=== PATIENT | female | born 1960 | race Hispanic/Latino ===

== ENCOUNTER 2019-02-04 12:42 | Inpatient (IN) | payer OTHER ==
[~2019-02-04] VITALS: Ht 157.5 cm; Wt 82.1 kg
[~2019-02-04 12:42] MED LIST: ADVAIR; DULERA; LISINOPRIL; PRAVASTATIN; SINGULAIR
--- OUTSIDE RECORDS SUMMARY | 2019-02-04 12:46 | XMS REPORT | Summary of Care ---
Author Author [facility] Organization [facility] Address Unknown Phone Unavailable Encounter HQ Milind(JOSE) [id number] Date(s): 04/10/16 - 04/10/16 [facility] [address] [place] [address] [phone] Discharge Disposition: Home or Self Care Attending Physician: Johnathan Newman MD Referring Physician: Johnathan Newman MD Vital Signs Most recent to 1 oldest [Reference Range]: Height 157.48 cm (04/10/16 7:36 AM) Weight 77.273 kg (04/10/16 7:36 AM) Body Mass Index 31.16 m2 (04/10/16 7:36 AM) Problem List Condition Effective Dates Status Health Status Informant Acute Active gastroenteritis(Conf irmed) Acute Resolved pyelonephritis(Confi rmed) Asthma(Confirmed) Resolved Atrial Resolved fibrillation(Confirm ed) H/O type A viral Resolved hepatitis(Confirmed) Hypercholesterolemia Active (Confirmed) Hypertension(Confirm Resolved ed) Allergies, Adverse Reactions, Alerts Substance Reaction Severity Status NKDA Active Medications No data available for this section Results No data available for this section Immunizations Given and Recorded Vaccine Date Status Refusal Reason influenza virus vaccine, inactivated 03/15/16 Given influenza virus vaccine, inactivated 08/08/08 Given pneumococcal 23-valent vaccine 04/19/07 Given Procedures Procedure Date Related Diagnosis Body Site Appendectomy Arthroscopy of knee1 Cardiac catheterization CTR - Carpal tunnel release2 Epidural anesthesia3 Partial hysterectomy Tonsillectomy 1left 2bilateral [id number] Social History Social History Type Response Alcohol Never Smoking Status Never smoker; Exposure to Tobacco Smoke None; Cigarette Smoking Last 365 Days No; Reg Smoking Cessation Counseling No Assessment and Plan No data available for this section
--- OUTSIDE RECORDS SUMMARY | 2019-02-04 12:46 | XMS REPORT | Summary of Care ---
Author Author [facility] Organization [facility] Address Unknown Phone Unavailable Encounter HQ Domi_marni(FIN) [id number] Date(s): 03/30/16 - 03/30/16 [facility] [address] [place] [address]- Discharge Disposition: Home or Self Care Attending Physician: Karthik Bird MD Referring Physician: Karthik Bird MD Vital Signs No data available for this section Problem List Condition Effective Dates Status Health [...] Epidural anesthesia3 Partial hysterectomy Tonsillectomy 1left 2bilateral [id number] Social History Social History Type Response Alcohol Never Smoking Status Never smoker; Exposure to Tobacco Smoke None; Cigarette Smoking Last 365 Days No; Reg Smoking Cessation Counseling No Assessment and Plan No data available for this section
--- OUTSIDE RECORDS SUMMARY | 2019-02-04 12:46 | XMS REPORT | Summary of Care ---
Author Author [facility] Address Unknown Phone Unavailable Encounter HQ Domi_marni(FIN) [id number] Date(s): 06/09/15 - 07/08/15 [facility] Discharge Disposition: Home Attending Physician: Randall Sanderson MD Vital Signs No data available for this section Problem List Condition Effective Dates Status Health Status Informant Acute Active gastroenteritis(Conf irmed) Acute Resolved pyelonephritis(Confi rmed) Asthma(Confirmed) Resolved Atrial Resolved fibrillation(Confirm ed) Hypercholesterolemia Active (Confirmed) Hypertension(Confirm Resolved ed) Allergies, Adverse Reactions, Alerts Substance Reaction Severity Status NKDA Active Medications No data available for this section Results No data available for this section Immunizations Vaccine Date Refusal Reason influenza virus vaccine, inactivated 08/08/08 pneumococcal 23-valent vaccine 04/19/07 Procedures Procedure Date Related Diagnosis Body Site Appendectomy Arthroscopy of knee1 Cardiac catheterization CTR - Carpal tunnel release2 Epidural anesthesia3 Partial hysterectomy Tonsillectomy 1left 2bilateral [id number] Social History Social History Type Response Alcohol Never Smoking Status Never smoker; Exposure to Tobacco Smoke None; Cigarette Smoking Last 365 Days No; Reg Smoking Cessation Counseling No Assessment and Plan No data available for this section
--- OUTSIDE RECORDS SUMMARY | 2019-02-04 12:46 | XMS REPORT | Summary of Care ---
Author Author [facility] Address Unknown Phone Unavailable Encounter HQ Domi_marni(FIN) [id number] Date(s): 07/13/15 - 08/11/15 [facility] Discharge Disposition: Home Attending Physician: Randall Sanderson [...] Epidural anesthesia3 Partial hysterectomy Tonsillectomy 1left 2bilateral [id number] Social History Social History Type Response Alcohol Never Smoking Status Never smoker; Exposure to Tobacco Smoke None; Cigarette Smoking Last 365 Days No; Reg Smoking Cessation Counseling No Assessment and Plan No data available for this section
--- OUTSIDE RECORDS SUMMARY | 2019-02-04 12:46 | XMS REPORT | Summary of Care ---
Author Author [facility] Organization [facility] Address Unknown Phone Unavailable Encounter ASHLI Vaz(JOSE) [id number] Date(s): 04/04/16 - 04/04/16 [facility] [address] [facility] [address], [address] Discharge Disposition: Home or Self Care Attending Physician: Johnathan Newman MD Referring Physician: Johnathan Newman MD Vital Signs Most recent to 1 oldest [Reference Range]: Height 157.48 cm (04/04/16 9:08 AM) Temperature Oral 97.1 DegF [96.4-99.1 DegF] (04/04/16 9:08 AM) Blood Pressure 165/81 mmHg [90-140/60-90 mmHg] *HI* (04/04/16 9:08 AM) Respiratory Rate 20 BRMIN [14-20 BRMIN] (04/04/16 9:08 AM) Peripheral Pulse 83 bpm Rate [60-100 bpm] (04/04/16 9:08 AM) Weight 79.205 kg (04/04/16 9:08 AM) Body Mass Index 31.94 m2 (04/04/16 9:08 AM) Problem List Condition Effective Dates Status Health Status Informant Acute Active gastroenteritis(Conf irmed) Acute Resolved pyelonephritis(Confi rmed) Asthma(Confirmed) Resolved Atrial Resolved fibrillation(Confirm ed) H/O type A viral Resolved hepatitis(Confirmed) Hypercholesterolemia Active (Confirmed) Hypertension(Confirm Resolved ed) Allergies, Adverse Reactions, Alerts Substance Reaction Severity Status NKDA Active Medications atorvastatin 10 mg oral tablet 10 mg=1 tab, PO, Bedtime, # 90 tab, 0 Refill(s) Start Date: 04/04/16 Status: Ordered losartan 25 mg oral tablet 25 mg=1 tab, PO, Daily, # 30 tab, 0 Refill(s) Start Date: 04/04/16 Status: Ordered spironolactone 50 mg oral tablet 50 mg=1 tab, PO, Daily, # 60 tab, 0 Refill(s) Start Date: 04/04/16 Stop Date: 05/04/16 Status: Ordered Results No data available for this section Immunizations Given and Recorded Vaccine Date Status Refusal Reason influenza virus vaccine, inactivated 03/15/16 Given influenza virus vaccine, inactivated 08/08/08 Given pneumococcal 23-valent vaccine 04/19/07 Given Procedures Procedure Date Related Diagnosis Body Site Appendectomy Arthroscopy of knee1 Cardiac catheterization CTR - Carpal tunnel release2 Epidural anesthesia3 Partial hysterectomy Tonsillectomy 1left 2bilateral [id number] Social History Social History Type Response Alcohol Never Smoking Status Never smoker; Exposure to Tobacco Smoke None; Cigarette Smoking Last 365 Days No; Reg Smoking Cessation Counseling No Assessment and Plan No data available for this section
--- OUTSIDE RECORDS SUMMARY | 2019-02-04 12:46 | XMS REPORT | Summary of Care ---
Author Author [facility] Organization [facility] Address Unknown Phone Unavailable Encounter HQ Domi_marni(FIN) [id number] Date(s): 05/24/16 - 05/25/16 [facility] [address], [address] [place] [address]- Vital Signs No data available for this section Problem List Condition Effective Dates Status Health Status Informant Acute Active gastroenteritis(Conf irmed) Acute Resolved pyelonephritis(Confi rmed) Asthma(Confirmed) Resolved Atrial Resolved fibrillation(Confirm ed) H/O type A viral Resolved hepatitis(Confirmed) Hypercholesterolemia Active (Confirmed) Hypertension(Confirm Resolved ed) Allergies, Adverse Reactions, Alerts Substance Reaction Severity Status NKDA Active Medications hydrochlorothiazide 12.5 mg oral capsule 12.5 mg=1 cap, PO, Daily, # 30 cap, 3 Refill(s), Pharmacy: [phone] Start Date: 05/24/16 Status: Ordered Results No data available for this section Immunizations Given and Recorded Vaccine Date Status Refusal Reason influenza virus vaccine, inactivated 03/15/16 Given influenza virus vaccine, inactivated 08/08/08 Given pneumococcal 23-valent vaccine 04/19/07 Given Procedures Procedure Date Related Diagnosis Body Site Appendectomy Arthroscopy of knee1 Cardiac catheterization CTR - Carpal tunnel release2 Epidural anesthesia3 Partial hysterectomy Tonsillectomy 1left 2bilateral [id number] Social History Social History Type Response Alcohol Never Smoking Status Never smoker; Exposure to Tobacco Smoke None; Cigarette Smoking Last 365 Days No; Reg Smoking Cessation Counseling No Assessment and Plan No data available for this section
--- OUTSIDE RECORDS SUMMARY | 2019-02-04 12:46 | XMS REPORT | Summary of Care ---
Author Author [facility] Organization [facility] Address Unknown Phone Unavailable Encounter ASHLI Vaz(JOSE) [id number] Date(s): 03/19/15 - 03/19/15 [facility] [address] [place] [address]- Discharge Disposition: Home Attending Physician: Randall Sanderson MD Referring Physician: Randall Sanderson MD Vital Signs 1 2 3 Most recent to oldest [Reference Range]: 157.48 cm (03/16/15 9:32 AM) Height 1 2 3 Most recent to oldest [Reference Range]: 97.8 DegF (03/16/15 9:47 AM) Temperature Oral [96.4-99.1 DegF] 1 2 3 Most recent to oldest [Reference Range]: 146/63 mmHg *HI* (03/19/15 7:30 PM) 148/66 mmHg *HI* (03/19/15 7:15 PM) 140/73 mmHg (03/19/15 7:00 PM) Blood Pressure [90-140/60-90 mmHg] 1 2 3 Most recent to oldest [Reference Range]: 15 BRMIN (03/19/15 7:00 PM) 15 BRMIN (03/19/15 6:45 PM) 14 BRMIN (03/19/15 6:30 PM) Respiratory Rate [14-20 BRMIN] 1 2 3 Most recent to oldest [Reference Range]: 74 bpm (03/16/15 9:47 AM) Peripheral Pulse Rate [60-100 bpm] 1 2 3 Most recent to oldest [Reference Range]: 82.727 kg (03/16/15 9:32 AM) Weight 1 2 3 Most recent to oldest [Reference Range]: 33.36 m2 (03/16/15 9:32 AM) Body Mass Index Problem List Condition Effective Dates Status Health Status Informant Acute Active gastroenteritis(Conf irmed) Acute Resolved pyelonephritis(Confi rmed) Asthma(Confirmed) Resolved Atrial Resolved fibrillation(Confirm ed) Hypercholesterolemia Active (Confirmed) Hypertension(Confirm Resolved ed) Allergies, Adverse Reactions, Alerts Substance Reaction Severity Status NKDA Active Medications acetaminophen 1,000 mg, Route: IVPB, Drug form: INJ, ONCE, Dosing Weight 82.727, kg, PRN Pain Score 1-3, Start date: 03/19/15 17:35:00, Duration: 1 doses or times, Stop date: Limited # of times Start Date: 03/19/15 Stop Date: 03/19/15 Status: Discontinued Advair Diskus 250 mcg-50 mcg inhalation powder 1 puff, INHALATION, BID, # 1 ea, 3 Refill(s) Start Date: 03/16/15 Stop Date: 04/15/15 Status: Ordered Ancef 2 gm, Route: IVPB, ONCE, Dosing Weight 82.727, kg, Start date: 03/19/15 16:46:00 , Duration: 1 doses or times, Stop date: 03/19/15 16:46:00, Surgical Prophylaxis Only; For patients < 120 kg Special Instructions: Surgical Prophylaxis Only; For patients < 120 kg Start Date: 03/19/15 Stop Date: 03/19/15 Status: Completed aspirin 81 mg tablet, enteric coated 81 mg=1 tab, PO, Daily, *LAST DOSE 03/14/15*, # 90 tab, 3 Refill(s) Special Instructions: *LAST DOSE 03/14/15* Start Date: 03/16/15 Status: Ordered Dulera 100 mcg-5 mcg/inh inhalation aerosol 2 puff, INHALER, BID, # 1 ea, 3 Refill(s) Start Date: 03/16/15 Status: Ordered fentaNYL 50 microgram, Route: IVP, Q5Min, Dosing Weight 82.727, kg, PRN Pain Score 7-10, Start date: 03/19/15 17:35:00, Duration: 2 doses or times, Stop date: Limited # of times Start Date: 03/19/15 Stop Date: 03/19/15 Status: Discontinued flumazenil 0.2 mg, Route: IVP, PRN, Dosing Weight 82.727, kg, PRN Benzodiazepine Reversal, Initial dose, Start date: 03/19/15 17:35:00, Duration: 30 day, Stop date: 16:34:00 Start Date: 03/19/15 Stop Date: 03/19/15 Status: Discontinued hydrochlorothiazide-triamterene 25 mg-37.5 mg oral capsule 1 cap, PO, Daily, # 30 cap, 0 Refill(s) Start Date: 03/16/15 Status: Ordered hydromorphone 0.5 mg, Route: IVP, Q5Min, Dosing Weight 82.727, kg, PRN Pain Score 7-10, Start date: 03/19/15 17:35:00, Duration: 4 doses or times, Stop date: Limited # of jermaine es Start Date: 03/19/15 Stop Date: 03/19/15 Status: Discontinued Lactated Ringers Injection IV 1000 mL 1,000 mL, Rate: 25 ml/hr, Infuse over: 40 hr, Route: IV, Dosing Weight 82.727 kg , Total Volume: 1,000, Start date: 03/19/15 14:02:00, Duration: 30 day, Stop jolene e: 04/18/15 14:01:00 Start Date: 03/19/15 Stop Date: 03/19/15 Status: Discontinued lisinopril 10 mg oral tablet 10 mg=1 tab, PO, Daily, # 30 tab, 0 Refill(s) Start Date: 03/16/15 Status: Ordered meperidine 12.5 mg, Route: IVP, Q30Min, Dosing Weight 82.727, kg, PRN Other -See Comment, F or shivering, Start date: 03/19/15 17:35:00, Duration: 2 doses or times, Stop da te: Limited # of times Start Date: 03/19/15 Stop Date: 03/19/15 Status: Discontinued naloxone 0.04 mg, Route: IVP, Q2MIN, Dosing Weight 82.727, kg, PRN Narcotic Reversal, Sta rt date: 03/19/15 17:35:00, Duration: 8 doses or times, Stop date: Limited # of times Start Date: 03/19/15 Stop Date: 03/19/15 Status: Discontinued ondansetron 4 mg, Route: IVP, ONCE, Dosing Weight 82.727, kg, PRN Nausea & Vomiting, Start date: 03/19/15 17:35:00 Start Date: 03/19/15 Stop Date: 03/19/15 Status: Discontinued oxyCODONE 5 mg, Route: PO, Drug form: TAB, Q4H, Dosing Weight 82.727, kg, PRN Pain Score 4 -6, Start date: 03/19/15 17:35:00, Duration: 30 day, Stop date: 04/18/15 17:34:0 0 Start Date: 03/19/15 Stop Date: 03/19/15 Status: Discontinued Singulair 10 mg oral tablet 10 mg=1 tab, PO, Bedtime, # 30 tab, 0 Refill(s) Start Date: 03/16/15 Status: Ordered Symbicort 160/4.5 inhalation aerosol with adapter 2 puff, INHALER, BID, # 1 ea, 3 Refill(s) Start Date: 03/16/15 Status: Ordered Results ELECTROLYTES Most recent to 1 oldest [Reference Range]: Sodium Lvl [135-145 139 mEq/L mEq/L] (03/16/15 10:12 AM) Potassium Lvl 4.2 mEq/L [3.5-5.1 mEq/L] (03/16/15 10:12 AM) Chloride Lvl [95-109 105 mEq/L mEq/L] (03/16/15 10:12 AM) CO2 [24-32 mEq/L] 27 mEq/L (03/16/15 10:12 AM) CHEM PANEL Most recent to 1 oldest [Reference Range]: Creatinine Lvl 0.7 mg/dL [0.5-1.4 mg/dL] (03/16/15 10:12 AM) eGFR 97 mL/min/1.73m2 1 *NA* (03/16/15 10:12 AM) BUN [7-22 mg/dL] 13 mg/dL (03/16/15 10:12 AM) Glucose Lvl [70-99 103 mg/dL mg/dL] *HI* (03/16/15 10:12 AM) Total Protein 7.9 g/dL [6.4-8.4 g/dL] (03/16/15 10:12 AM) Albumin Lvl [3.5-5.0 4.0 g/dL g/dL] (03/16/15 10:12 AM) Globulin [2.0-4.0 3.9 g/dL g/dL] (03/16/15 10:12 AM) A/G Ratio [0.7-1.6] 1.0 (03/16/15 10:12 AM) Calcium Lvl 8.9 mg/dL [8.5-10.5 mg/dL] (03/16/15 10:12 AM) ALT [0-65 unit/L] 34 unit/L (03/16/15 10:12 AM) AST [0-37 unit/L] 15 unit/L (03/16/15 10:12 AM) Alk Phos [39-136 124 unit/L unit/L] (03/16/15 10:12 AM) Bili Total [0.2-1.3 0.4 mg/dL mg/dL] (03/16/15 10:12 AM) Bili Direct [0.0-0.3 0.1 mg/dL mg/dL] (03/16/15 10:12 AM) Bili Indirect 0.3 mg/dL [0.0-1.0 mg/dL] (03/16/15 10:12 AM) 1Result Comment: The eGFR is calculated using the CKD-EPI formula. In most young, healthy individuals the eGFR will be >90 mL/min/1.73m2. The eGFR declines with age. An eGFR of 60-89 may be normal in some populations, particularly the elderly, for whom the CKD-EPI formula has not been extensively validated. Use of the eGFR is not recommended in the following populations: Individuals with unstable creatinine concentrations, including patients and those with serious co-morbid conditions. Patients with extremes in muscle mass or diet. The data above are obtained from the National Kidney Disease Education Program ( NKDEP) which additionally recommends that when the eGFR is used in patients with extremes of body mass index for purposes of drug dosing, the eGFR should be mul tiplied by the estimated BMI. HEMATOLOGY Most recent to 1 oldest [Reference Range]: WBC [3.7-10.4 K/CMM] 6.3 K/CMM (03/16/15 10:12 AM) Platelet [133-450 198 K/CMM K/CMM] (03/16/15 10:12 AM) PT [12.0-14.7 12.5 seconds seconds] (03/16/15 10:12 AM) INR [0.85-1.17] 0.90 (03/16/15 10:12 AM) PTT [22.9-35.8 31.5 seconds seconds] (03/16/15 10:12 AM) Immunizations Vaccine Date Refusal Reason influenza virus vaccine, inactivated 08/08/08 pneumococcal 23-valent vaccine 04/19/07 Procedures Procedure Date Related Diagnosis Body Site Appendectomy Arthroscopy of knee1 Cardiac catheterization CTR - Carpal tunnel release2 Epidural anesthesia3 Partial hysterectomy Tonsillectomy 1left 2bilateral [id number] Social History Social History Type Response Alcohol Never Smoking Status Never smoker; Exposure to Tobacco Smoke None; Cigarette Smoking Last 365 Days No; Reg Smoking Cessation Counseling No Assessment and Plan No data available for this section
--- OUTSIDE RECORDS SUMMARY | 2019-02-04 12:46 | XMS REPORT | Summary of Care ---
Author Author [facility] Address Unknown Phone Unavailable Encounter HQ Domi_marni(FIN) [id number] Date(s): 03/30/15 - 04/28/15 [facility] Discharge Disposition: Home Attending Physician: Randall [...] Epidural anesthesia3 Partial hysterectomy Tonsillectomy 1left 2bilateral [id number] Social History Social History Type Response Alcohol Never Smoking Status Never smoker; Exposure to Tobacco Smoke None; Cigarette Smoking Last 365 Days No; Reg Smoking Cessation Counseling No Assessment and Plan No data available for this section
--- OUTSIDE RECORDS SUMMARY | 2019-02-04 12:46 | XMS REPORT | Continuity of Care Document ---
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 Phone [employer] Unavailable Unavailable Problems Problem Status Onset Date Classification Date Reported Comments Source FOLLOW UP Active 01/15/2019 [facility] Chest pain, unspecified 11/16/2018 11/18/2018 [facility] CHEST PAIN Active 11/16/2018 [facility] 3 MONTH FOLLOW UP Active 11/02/2016 [facility] 3 MONTH F/U Active 08/02/2016 [facility] F/U Active 07/14/2016 [facility] 2 WEEK F/U Active 04/05/2016 [facility] DX:[id number] AND COLLAPSE Active 03/27/2016 [facility] HTN/ ARRYTHMIA Active 03/21/2016 [facility] JAW TIGHTNESS, WEAKNESS Active 03/14/2016 [facility] STROKE LIKE SX Active 03/14/2016 [facility] UNK Active 03/05/2015 [facility] [id number] Active 03/05/2015 [facility] Acute gastroenteritis (disorder) Active Problem 01/29/2019 [facility] Acute pyelonephritis (disorder) Resolved Problem 01/29/2019 [facility] Asthma (disorder) Resolved Problem 01/29/2019 [facility] Atrial fibrillation (disorder) Resolved Problem 01/29/2019 [facility] History of hepatitis A (situation) Resolved Problem 01/29/2019 [facility] Hypercholesterolemia (disorder) Active Problem 01/29/2019 [facility], [facility] Hypertensive disorder, systemic arterial (disorder) Resolved Problem 01/29/2019 [facility], [facility] RT KNEE SX 03/19/15 Active [facility] RT KNEE Active [facility] PAIN Active [facility] SHOULDER Active [facility] Medications Medication Details Route Status Patient Instructions Ordering Provider Order Date Source atorvastatin 40 mg oral tablet 40 mg=1 tab, PO, Bedtime, # 30 tab, 11 Refill(s), Pharmacy: [id number] Active 01/28/2019 [facility] metoprolol 50 mg oral tablet, extended release 50 mg=1 tab, PO, Daily, take one tab daily, in combination with 25 mg tab for total dose 75 mg daily., # 30 tab, 11 Refill(s), Pharmacy: [facility] Active 01/28/2019 [facility] metoprolol 25 mg oral tablet, extended release 25 mg=1 tab, PO, Daily, Take 1 tab daily in combination with 50 mg tab for total dose of 75 mg daily., # 30 tab, 11 Refill(s), Pharmacy: [facility] Active 01/28/2019 [facility] losartan 50 mg oral tablet 50 mg=1 tab, PO, Daily, # 30 tab, 11 Refill(s), Pharmacy: [facility] Active 11/19/2018 [facility] Hydrochlorothiazide 25 MG / Spironolactone 25 MG Oral Tablet [Aldactazide] 1 tab, PO, Daily, # 30 tab, 11 Refill(s), Pharmacy: [facility] Active 11/19/2018 [facility] Aspirin 81 MG Enteric Coated Tablet 81 mg=1 tab, PO, Daily, # 30 tab, 11 Refill(s), Pharmacy: [facility] Active 11/19/2018 [facility] atorvastatin 20 MG Oral Tablet [Lipitor] 20 mg=1 tab, PO, Daily, # 30 tab, 11 Refill(s), Pharmacy: [facility] Active 11/19/2018 [facility] metoprolol 50 mg oral tablet, extended release 50 mg=1 tab, PO, Daily, # 30 tab, 11 Refill(s), Pharmacy: [facility] Active 11/19/2018 [facility] Hydrochlorothiazide 25 MG / Spironolactone 25 MG Oral Tablet [Aldactazide] 1 tab, PO, Daily, # 30 tab, 6 Refill(s), Pharmacy: [facility] Active 10/07/2018 [facility] atorvastatin 20 mg oral tablet 20 mg=1 tab, PO, Daily, # 30 tab, 6 Refill(s), Pharmacy: [facility] Active 11/26/2017 [facility] metoprolol 50 mg oral tablet, extended release 50 mg=1 tab, PO, Daily, # 30 tab, 6 Refill(s), Pharmacy: [facility] Active 11/26/2017 [facility] Hydrochlorothiazide 25 MG / Spironolactone 25 MG Oral Tablet [Aldactazide] 1 tab, PO, Daily, # 30 tab, 6 Refill(s), Pharmacy: [facility] Active 11/26/2017 [facility] losartan 50 mg oral tablet 50 mg=1 tab, PO, Daily, # 30 tab, 6 Refill(s), Pharmacy: [facility] Active 11/26/2017 [facility] Hydrochlorothiazide 25 MG / Spironolactone 25 MG Oral Tablet [Aldactazide] 1 tab, PO, Daily, # 30 tab, 6 Refill(s), Pharmacy: [facility] Active 06/12/2017 [facility] Hydrochlorothiazide 25 MG / Spironolactone 25 MG Oral Tablet [Aldactazide] 1 tab, PO, Daily, # 30 tab, 6 Refill(s), Pharmacy: [facility] Active 03/31/2017 [facility] metoprolol 50 mg oral tablet, extended release 50 mg=1 tab, PO, Daily, # 30 tab, 6 Refill(s), Pharmacy: [facility] Active 03/31/2017 [facility] losartan 50 mg oral tablet 50 mg=1 tab, PO, Daily, # 30 tab, 6 Refill(s), Pharmacy: [facility] Active 03/31/2017 [facility] atorvastatin 20 mg oral tablet 20 mg=1 tab, PO, Daily, # 30 tab, 6 Refill(s), Pharmacy: [facility] Active 03/31/2017 [facility] aspirin 81 mg tablet, enteric coated 81 mg=1 tab, PO, Daily, *LAST DOSE 03/14/15*, # 120 tab, 5 Refill(s), Pharmacy: [facility] Active 03/31/2017 [facility] metoprolol 50 mg oral tablet, extended release 50 mg=1 tab, PO, Daily, X 30 day, # 30 tab, 2 Refill(s), Pharmacy: [facility] No Longer Active 12/04/2016 [facility] metoprolol 25 mg oral tablet, extended release 25 mg=1 tab, PO, BID, # 60 tab, 5 Refill(s), Pharmacy: [facility] Active 11/24/2016 [facility] spironolactone 50 mg oral tablet 50 mg=1 tab, PO, Daily, # 30 tab, 5 Refill(s), Pharmacy: [facility] Active 08/01/2016 [facility] metoprolol 25 mg oral tablet, extended release See Instructions, 1 tab in the morning and two tabs in the evening., # 90 tab, 5 Refill(s), Pharmacy: [facility] Active 08/01/2016 [facility] losartan 50 mg oral tablet 50 mg=1 tab, PO, Daily, # 30 tab, 5 Refill(s), Pharmacy: [facility] Active 08/01/2016 [facility] Hydrochlorothiazide 12.5 MG Oral Capsule 12.5 mg=1 cap, PO, Daily, # 30 tab, 5 Refill(s), Pharmacy: [facility] Active 08/01/2016 [facility] atorvastatin 20 mg oral tablet 20 mg=1 tab, PO, Daily, # 30 tab, 5 Refill(s), Pharmacy: [facility] Active 08/01/2016 [facility] aspirin 81 mg tablet, enteric coated 81 mg=1 tab, PO, Daily, *LAST DOSE 03/14/15*, # 30 tab, 5 Refill(s), Pharmacy: [facility] Active 08/01/2016 [facility] Hydrochlorothiazide 12.5 MG Oral Capsule 12.5 mg=1 cap, PO, Daily, # 30 cap, 3 Refill(s), Pharmacy: [facility] Active 05/25/2016 [facility] atorvastatin 10 mg oral tablet 10 mg=1 tab, PO, Bedtime, # 90 tab, 0 Refill(s) Active 04/04/2016 [facility] losartan 25 mg oral tablet 25 mg=1 tab, PO, Daily, # 30 tab, 0 Refill(s) Active 04/04/2016 [facility] spironolactone 50 mg oral tablet 50 mg=1 tab, PO, Daily, # 60 tab, 0 Refill(s) Active 04/04/2016 [facility] atorvastatin 40 mg, 1 tab, Route: PO, Drug form: TAB, Bedtime, Dosing Weight 76.818, kg, Start date: 03/15/16 21:00:00 CDT, Duration: 30 day, Stop date: 04/13/16 21:00:00 CDTNotes: (Same as: Lipitor) Inactive 03/16/2016 [facility] Singulair 10 mg, 1 tab, Route: PO, Drug form: TAB, Bedtime, Dosing Weight 76.818, kg, Start date: 03/15/16 21:00:00 CDT, Duration: 30 day, Stop date: 04/13/16 21:00:00 CDTNotes: (Same as:Singulair) Inactive 03/16/2016 [facility] Ondansetron 4 MG Disintegrating Tablet [Zofran] 4 mg, PO, Q8H, PRN Nausea, X 5 day, # 15 tab, 0 Refill(s) Active 03/15/2016 [facility] rizatriptan 5 MG Oral Tablet [Maxalt] 5 mg, PO, Daily, PRN migraine/headache, # 9 tab, 0 Refill(s) Active 03/15/2016 [facility] Zofran ODT 4 mg, 1 tab, Route: PO, Drug form: TABDIS, Q8H, Dosing Weight 78.892, kg, PRN Nausea, Start date: 03/15/16 13:51:00 CDT, Duration: 30 day, Stop date: 04/14/16 13:50:00 CDTNotes: (Same as: [place] ODT) Inactive 03/15/2016 [facility] influenza virus vaccine, inactivated 0.5 mL, Route: IM, Drug Form: SUSP, Daily, Start date: 03/15/16 9:00:00 CDT, Duration: 1 doses or times, Stop date: 03/15/16 9:00:00 CDTNotes: (Same as: Fluzone Quadrivalent, Fluarix Quadrivalent) For 3 years of age and older (0.5 mL IM) Shake well before use Inactive 03/15/2016 [facility] Lisinopril 10 mg, 1 tab, Route: PO, Drug form: TAB, Daily, Dosing Weight 76.818, kg, Start date: 03/15/16 9:00:00 CDT, Duration: 30 day, Stop date: 04/13/16 9:00:00 CDTNotes: (Same as: Prinivil, Zestril) Inactive 03/15/2016 [facility] Hydrochlorothiazide 25 MG / Triamterene 37.5 MG Oral Capsule 1 tab, Route: PO, Drug Form: TAB, Dosing Weight 76.818, kg, Daily, Start date: 03/15/16 9:00:00 CDT, Duration: 30 day, Stop date: 04/13/16 9:00:00 CDTNotes: (triamterene-hydrochlorothiazide 37.5-25 mg TAB) (Same As: Maxzide-25) Inactive 03/15/2016 [facility] Dulera 100 mcg-5 mcg/inh inhalation aerosol 2 puff, Route: INHALER, Drug Form: AERO, Dosing Weight 76.818, kg, BID, Start date: 03/15/16 9:00:00 CDT, Duration: 30 day, Stop date: 04/13/16 17:00:00 CDT Inactive 03/15/2016 [facility] Advair Diskus 250 mcg-50 mcg inhalation powder 1 puff, Route: INHALATION, Drug Form: AERO, Dosing Weight 76.818, kg, BID, Start date: 03/15/16 9:00:00 CDT, Duration: 30 day, Stop date: 04/13/16 17:00:00 CDT Inactive 03/15/2016 [facility] Symbicort 160/4.5 inhalation aerosol with adapter 2 puff, Route: INHALER, Drug Form: AERO/A, Dosing Weight 76.818, kg, BID, Start date: 03/15/16 9:00:00 CDT, Duration: 30 day, Stop date: 04/13/16 17:00:00 CDT Inactive 03/15/2016 [facility] pneumococcal capsular polysaccharide type 1 vaccine / pneumococcal capsular polysaccharide type 10A vaccine / pneumococcal capsular polysaccharide type 11A vaccine / pneumococcal capsular polysaccharide type 12F vaccine / pneumococcal capsular polysacchar 0.5 mL, Route: IM, Daily, Start date: 03/15/16 9:00:00 CDT, Duration: 1 doses or times, Stop date: 03/15/16 9:00:00 CDT No Longer Active 03/15/2016 [facility] Aspirin 81 MG Enteric Coated Tablet 81 mg, 1 tab, Route: PO, Drug form: ECTAB, Daily, Dosing Weight 76.818, kg, Start date: 03/15/16 6:00:00 CDT, Duration: 30 day, Stop date: 04/13/16 9:00:00 CDTNotes: Do not crush or chew. (Same As: Ecotrin) Inactive 03/15/2016 [facility] Maxalt 5 mg, 0.5 tab, Route: PO, Drug form: TAB, ONCE, Dosing Weight 76.818, kg, PRN Headache 7-10, Start date: 03/14/16 23:57:00 CDTNotes: Same as Maxalt Non Formulary item No Longer Active 03/15/2016 [facility] Maxalt 5 mg, PO, Daily, PRN migraine/headache, 0 Refill(s) No Longer Active 03/15/2016 [facility] zolmitriptan 5 MG Oral Tablet [Zomig] 5 mg=1 tab, PO, Daily, PRN Headache/Migraine, # 10 tab, 0 Refill(s) Active 03/15/2016 [facility] Tylenol 650 mg, 20.3 mL, Route: PO, Drug form: LIQ, Q4H, Dosing Weight 76.818, kg, PRN Pain Score 1-3, Start date: 03/14/16 21:06:00 CDT, Duration: 30 day, Stop date: 04/13/16 21:05:00 CDTNotes: Max acetaminoph ep=4322sr/day (4 gm/day). (Same as: Tylenol) No Longer Active 03/15/2016 [facility] Zofran 4 mg, 2 mL, Route: IV, Drug form: INJ, Q6H, Dosing Weight 76.818, kg, PRN as needed for nausea/vomiting, Priority: NOW, Start date: 03/14/16 18:33:00 CDT, Duration: 30 day, Stop date: 04/13/16 18:32:00 CDTNotes: (Same as: Zofran) MEDICATION WASTE Product Size: 4 mg Product Wasted: ___ mg No Longer Active 03/14/2016 [facility] Sodium Chloride 0.154 MEQ/ML Injectable Solution 1,000 mL, Infuse Over: 1 hr, Route: IV, ONCE, Priority: STAT, Dosing Weight 76.818 kg, Start date: 03/14/16 10:56:00 CDT, Duration: 1 doses or times, Stop date: 03/14/16 10:56:00 CDT Inactive 03/14/2016 [facility] Saline Flush 0.9% 10 mL, Route: IVP, Drug Form: INJ, Dosing Weight 76.818, kg, PRN, PRN Line Flush, Start date: 03/14/16 10:56:00 CDT, Duration: 30 day, Stop date: 04/13/16 10:55:00 CDTNotes: (Same as: BD Posiflush) Inactive 03/14/2016 [facility] Ondansetron 4 mg, Route: IVP, ONCE, Dosing Weight 82.727, kg, PRN Nausea & Vomiting, Start date: 03/19/15 17:35:00 Inactive 03/19/2015 [facility] Meperidine 12.5 mg, Route: IVP, Q30Min, Dosing Weight 82.727, kg, PRN Other -See Comment, For shivering, Start date: 03/19/15 17:35:00, Duration: 2 doses or times, Stop date: Limited # of times Inactive 03/19/2015 [facility] Flumazenil 0.2 mg, Route: IVP, PRN, Dosing Weight 82.727, kg, PRN Benzodiazepine Reversal, Initial dose, Start date: 03/19/15 17:35:00, Duration: 30 day, Stop date: 04/18/15 16:34:00 Inactive 03/19/2015 [facility] Naloxone 0.04 mg, Route: IVP, Q2MIN, Dosing Weight 82.727, kg, PRN Narcotic Reversal, Start date: 03/19/15 17:35:00, Duration: 8 doses or times, Stop date: Limited # of times Inactive 03/19/2015 [facility] Fentanyl 50 microgram, Route: IVP, Q5Min, Dosing Weight 82.727, kg, PRN Pain Score 7-10, Start date: 03/19/15 17:35:00, Duration: 2 doses or times, Stop date: Limited # of times Inactive 03/19/2015 [facility] Hydromorphone 0.5 mg, Route: IVP, Q5Min, Dosing Weight 82.727, kg, PRN Pain Score 7-10, Start date: 03/19/15 17:35:00, Duration: 4 doses or times, Stop date: Limited # of times Inactive 03/19/2015 [facility] Acetaminophen 1,000 mg, Route: IVPB, Drug form: INJ, ONCE, Dosing Weight 82.727, kg, PRN Pain Score 1-3, Start date: 03/19/15 17:35:00, Duration: 1 doses or times, Stop date: Limited # of times Inactive 03/19/2015 [facility] Oxycodone 5 mg, Route: PO, Drug form: TAB, Q4H, Dosing Weight 82.727, kg, PRN Pain Score 4-6, Start date: 03/19/15 17:35:00, Duration: 30 day, Stop date: 04/18/15 17:34:00 Inactive 03/19/2015 [facility] Ancef 2 gm, Route: IVPB, ONCE, Dosing Weight 82.727, kg, Start date: 03/19/15 16:46:00, Duration: 1 doses or times, Stop date: 03/19/15 16:46:00, Surgical Prophylaxis Only; For patients Special Instructions: Surgical Prophylaxis Only; For patients Inactive 03/19/2015 [facility] Calcium Chloride 0.0014 MEQ/ML / Potassium Chloride 0.004 MEQ/ML / Sodium Chloride 0.103 MEQ/ML / Sodium Lactate 0.028 MEQ/ML Injectable Solution 1,000 mL, Rate: 25 ml/hr, Infuse over: 40 hr, Route: IV, Dosing Weight 82.727 kg, Total Volume: 1,000, Start date: 03/19/15 14:02:00, Duration: 30 day, Stop date: 04/18/15 14:01:00 Inactive 03/19/2015 [facility] montelukast 10 MG Oral Tablet [Singulair] 10 mg=1 tab, PO, Bedtime, # 30 tab, 0 Refill(s) Active 03/16/2015 [facility] Advair Diskus 250 mcg-50 mcg inhalation powder 1 puff, INHALATION, BID, # 1 ea, 3 Refill(s) Active 03/16/2015 [facility] Aspirin 81 MG Enteric Coated Tablet 81 mg=1 tab, PO, Daily, *LAST DOSE 03/14/15*, # 90 tab, 3 Refill(s)Special Instructions: *LAST DOSE 03/14/15* Active 03/16/2015 [facility] 120 ACTUAT formoterol fumarate 0.005 MG/ACTUAT / mometasone furoate 0.1 MG/ACTUAT Metered Dose Inhaler [Dulera 100/5] 2 puff, INHALER, BID, # 1 ea, 3 Refill(s) Active 03/16/2015 [facility] Symbicort 160/4.5 inhalation aerosol with adapter 2 puff, INHALER, BID, # 1 ea, 3 Refill(s) Active 03/16/2015 [facility] lisinopril 10 mg oral tablet 10 mg=1 tab, PO, Daily, # 30 tab, 0 Refill(s) Active 03/16/2015 [facility] Hydrochlorothiazide 25 MG / Triamterene 37.5 MG Oral Capsule 1 cap, PO, Daily, # 30 cap, 0 Refill(s) Active 03/16/2015 [facility] Allergies, Adverse Reactions, Alerts Substance Category Reaction Severity Reaction type Status Date Reported Comments Source codeine<sup>1</sup> Assertion Moderate Drug allergy Active [facility]ching [facility] Latex<sup>2</sup> Assertion Moderate Drug allergy Active itching [facility] traMADol<sup>3</sup> Assertion Moderate Drug allergy Active Hives , Itching [facility] Latex<sup>1</sup> Assertion Moderate Drug allergy Active itching [facility] Immunizations Immunization Date Given Site Status Last Updated Comments Source influenza virus vaccine, inactivated 03/15/2016 Left deltoid completed [place] [facility], [facility] influenza virus vaccine, inactivated 08/08/2008 Left upper arm completed [place] [facility], [facility] pneumococcal 23-valent vaccine 04/19/2007 Right deltoid completed [place] [facility], [facility] Results Order Name Results Value Reference Range Date Interpretation Comments Source CHEM PANEL A/G Ratio 1.0 0.7 - 1.6 11/19/2018 [facility] CHEM PANEL eGFR 93 11/19/2018 Result Comment: The eGFR is calculated using the [...] from the National Kidney Disease Education Program (NKDEP) which additionally recommends that when the eGFR is used in patients with extremes of body mass index for purposes of drug dosing, the eGFR should be multiplied by the estimated BMI. [facility] CHEM PANEL Total Protein 7.9 6.4 - 8.4 11/19/2018 [facility] CHEM PANEL CO2 28 24 - 32 11/19/2018 [facility] CHEM PANEL Potassium Lvl 3.9 3.5 - 5.1 11/19/2018 [facility] CHEM PANEL Sodium Lvl 140 135 - 145 11/19/2018 [facility] CHEM PANEL Alk Phos 115 39 - 136 11/19/2018 [facility] CHEM PANEL ALT 32 0 - 65 11/19/2018 [facility] CHEM PANEL Chloride Lvl 105 95 - 109 11/19/2018 [facility] CHEM PANEL Albumin Lvl 4.0 3.5 - 5.0 11/19/2018 [facility] CHEM PANEL Calcium Lvl 8.9 8.5 - 10.5 11/19/2018 [facility] CHEM PANEL B/C Ratio 14 6 - 25 11/19/2018 [facility] CHEM PANEL Globulin 3.9 2.7 - 4.2 11/19/2018 [facility] CHEM PANEL AGAP 10.9 10.0 - 20.0 11/19/2018 [facility] CHEM PANEL Bili Total 0.6 0.2 - 1.3 11/19/2018 [facility] CHEM PANEL AST 14 0 - 37 11/19/2018 [facility] CHEM PANEL Glucose Lvl 89 70 - 99 11/19/2018 [facility] CHEM PANEL BUN 10 7 - 22 11/19/2018 [facility] CHEM PANEL Creatinine Lvl 0.71 0.50 - 1.40 11/19/2018 [facility] HEMATOLOGY MPV 9.9 7.4 - 10.4 11/19/2018 [facility] HEMATOLOGY Platelet 212 133 - 450 11/19/2018 [facility] HEMATOLOGY MCV 83.1 80.0 - 98.0 11/19/2018 [facility] HEMATOLOGY Hct 39.5 36.0 - 48.0 11/19/2018 [facility] HEMATOLOGY RDW 14.3 11.5 - 14.5 11/19/2018 [facility] HEMATOLOGY MCHC 32.7 32.0 - 36.0 11/19/2018 [facility] HEMATOLOGY MCH 27.1 27.0 - 31.0 11/19/2018 [facility] HEMATOLOGY Hgb 12.9 12.0 - 16.0 11/19/2018 [facility] HEMATOLOGY RBC 4.75 4.20 - 5.40 11/19/2018 [facility] HEMATOLOGY WBC 9.1 3.7 - 10.4 11/19/2018 [facility] HEMATOLOGY Segs 50.8 45.0 - 75.0 11/19/2018 [facility] HEMATOLOGY Lymphocytes 39.5 20.0 - 40.0 11/19/2018 [facility] HEMATOLOGY Monocytes 6.9 2.0 - 12.0 11/19/2018 [facility] HEMATOLOGY Lymphocytes # 3.6 1.0 - 5.5 11/19/2018 [facility] HEMATOLOGY Monocytes # 0.6 0.0 - 0.8 11/19/2018 [facility] HEMATOLOGY Basophils 0.6 0.0 - 1.0 11/19/2018 [facility] HEMATOLOGY Neutrophils # 4.6 1.5 - 8.1 11/19/2018 [facility] HEMATOLOGY Eosinophils 2.2 0.0 - 4.0 11/19/2018 [facility] HEMATOLOGY Basophils # 0.1 0.0 - 0.2 11/19/2018 [facility] HEMATOLOGY Eosinophils # 0.2 0.0 - 0.5 11/19/2018 [facility] LIPIDS VLDL 19 11/19/2018 [facility] LIPIDS LDL (Calculated) 124 <=99 mg/dL 11/19/2018 [facility] LIPIDS CHD Risk 4.33 3.90 - 5.80 11/19/2018 [facility] LIPIDS HDL 43 >=61 mg/dL 11/19/2018 [facility] LIPIDS Trig 96 <=149 mg/dL 11/19/2018 [facility] LIPIDS Chol 186 <=199 mg/dL 11/19/2018 [facility] SPECIAL CHEMISTRY Hgb A1C 5.8 <=5.6 % 11/19/2018 [facility] IMMUNOLOGY CDC HIV 4th GEN Negative *NA* (11/16/18 2:22 PM) Negative 11/16/2018 [facility] CARDIAC ENZYMES Troponin-I <0.02 0.00 - 0.40 11/16/2018 [facility] CARDIAC ENZYMES Troponin-I <0.02 0.00 - 0.40 11/16/2018 [facility] CHEM PANEL eGFR 97 11/16/2018 Result Comment: The eGFR is calculated using the [...] from the National Kidney Disease Education Program (NKDEP) which additionally recommends that when the eGFR is used in patients with extremes of body mass index for purposes of drug dosing, the eGFR should be multiplied by the estimated BMI. [facility] CHEM PANEL Glucose Lvl 108 70 - 99 11/16/2018 [facility] CHEM PANEL Sodium Lvl 139 135 - 145 11/16/2018 [facility] CHEM PANEL BUN 16 7 - 22 11/16/2018 [facility] CHEM PANEL Potassium Lvl 3.5 3.5 - 5.1 11/16/2018 [facility] CHEM PANEL Creatinine Lvl 0.65 0.50 - 1.40 11/16/2018 [facility] CHEM PANEL Calcium Lvl 9.1 8.5 - 10.5 11/16/2018 [facility] CHEM PANEL CO2 24 24 - 32 11/16/2018 [facility] CHEM PANEL Chloride Lvl 104 95 - 109 11/16/2018 [facility] CHEM PANEL AGAP 14.5 10.0 - 20.0 11/16/2018 [facility] HEMATOLOGY MPV 9.7 7.4 - 10.4 11/16/2018 [facility] HEMATOLOGY RDW 14.2 11.5 - 14.5 11/16/2018 [facility] HEMATOLOGY MCH 27.9 27.0 - 31.0 11/16/2018 [facility] HEMATOLOGY MCV 80.9 80.0 - 98.0 11/16/2018 [facility] HEMATOLOGY MCHC 34.4 32.0 - 36.0 11/16/2018 [facility] HEMATOLOGY WBC 6.9 3.7 - 10.4 11/16/2018 [facility] HEMATOLOGY RBC 5.07 4.20 - 5.40 11/16/2018 [facility] HEMATOLOGY Hgb 14.1 12.0 - 16.0 11/16/2018 [facility] HEMATOLOGY Hct 41.0 36.0 - 48.0 11/16/2018 [facility] HEMATOLOGY Platelet 187 133 - 450 11/16/2018 [facility] HEMATOLOGY RBC Morph Normal (11/16/18 12:06 PM) Normal 11/16/2018 [facility] HEMATOLOGY Plt Morph Normal (11/16/18 12:06 PM) Normal 11/16/2018 [facility] HEMATOLOGY Basophils # 0.1 0.0 - 0.2 11/16/2018 [facility] HEMATOLOGY Eosinophils # 0.1 0.0 - 0.5 11/16/2018 [facility] HEMATOLOGY Monocytes # 0.5 0.0 - 0.8 11/16/2018 [facility] HEMATOLOGY Lymphocytes # 2.5 1.0 - 5.5 11/16/2018 [facility] HEMATOLOGY Eosinophils 1.5 0.0 - 4.0 11/16/2018 [facility] HEMATOLOGY Monocytes 7.2 2.0 - 12.0 11/16/2018 [facility] HEMATOLOGY Lymphocytes 36.3 20.0 - 40.0 11/16/2018 [facility] HEMATOLOGY Segs 54.2 45.0 - 75.0 11/16/2018 [facility] HEMATOLOGY Neutrophils # 3.7 1.5 - 8.1 11/16/2018 [facility] HEMATOLOGY Basophils 0.8 0.0 - 1.0 11/16/2018 [facility] LIPIDS LDL (Calculated) 113 <=99 mg/dL 03/15/2016 [facility] LIPIDS VLDL 22 03/15/2016 [facility] LIPIDS CHD Risk 4.38 3.90 - 5.80 03/15/2016 [facility] LIPIDS Chol 175 <=199 mg/dL 03/15/2016 [facility] LIPIDS HDL 40 >=61 mg/dL 03/15/2016 [facility] LIPIDS Trig 110 <=149 mg/dL 03/15/2016 [facility] HEMATOLOGY D-Dimer 0.22 03/14/2016 [facility] CARDIAC ENZYMES CK MB Index 1.6 0.0 - 2.5 03/14/2016 [facility] CARDIAC ENZYMES Total CK 81 12 - 191 03/14/2016 [facility] CARDIAC ENZYMES Troponin-I <0.02 0.00 - 0.40 03/14/2016 [facility] CARDIAC ENZYMES CK MB 1.3 0.5 - 3.6 03/14/2016 [facility] CHEM PANEL eGFR 99 03/14/2016 Result Comment: The eGFR is calculated using the [...] from the National Kidney Disease Education Program (NKDEP) which additionally recommends that when the eGFR is used in patients with extremes of body mass index for purposes of drug dosing, the eGFR should be multiplied by the estimated BMI. [facility] CHEM PANEL AGAP 7.8 10.0 - 20.0 03/14/2016 [facility] CHEM PANEL Chloride Lvl 109 95 - 109 03/14/2016 [facility] CHEM PANEL CO2 28 24 - 32 03/14/2016 [facility] CHEM PANEL Calcium Lvl 8.6 8.5 - 10.5 03/14/2016 [facility] CHEM PANEL BUN 13 7 - 22 03/14/2016 [facility] CHEM PANEL Sodium Lvl 141 135 - 145 03/14/2016 [facility] CHEM PANEL Creatinine Lvl 0.64 0.50 - 1.40 03/14/2016 [facility] CHEM PANEL Potassium Lvl 3.8 3.5 - 5.1 03/14/2016 [facility] CHEM PANEL Glucose Lvl 108 70 - 99 03/14/2016 [facility] HEMATOLOGY Segs 56.1 45.0 - 75.0 03/14/2016 [facility] HEMATOLOGY Lymphocytes # 2.0 1.0 - 5.5 03/14/2016 [facility] HEMATOLOGY Eosinophils 1.6 0.0 - 4.0 03/14/2016 [facility] HEMATOLOGY Segs-Bands # 3.2 1.5 - 8.1 03/14/2016 [facility] HEMATOLOGY Basophils 1.0 0.0 - 1.0 03/14/2016 [facility] HEMATOLOGY Monocytes 7.1 2.0 - 12.0 03/14/2016 [facility] HEMATOLOGY Lymphocytes 34.2 20.0 - 40.0 03/14/2016 [facility] HEMATOLOGY Eosinophils # 0.1 0.0 - 0.5 03/14/2016 [facility] HEMATOLOGY Monocytes # 0.4 0.0 - 0.8 03/14/2016 [facility] HEMATOLOGY Basophils # 0.1 0.0 - 0.2 03/14/2016 [facility] HEMATOLOGY PT 12.5 12.0 - 14.7 03/14/2016 [facility] HEMATOLOGY INR 0.91 0.85 - 1.17 03/14/2016 [facility] HEMATOLOGY WBC 5.7 3.7 - 10.4 03/14/2016 [facility] HEMATOLOGY RBC 4.79 4.20 - 5.40 03/14/2016 [facility] HEMATOLOGY Hgb 12.9 12.0 - 16.0 03/14/2016 [facility] HEMATOLOGY Hct 38.5 36.0 - 48.0 03/14/2016 [facility] HEMATOLOGY MCV 80.3 80.0 - 98.0 03/14/2016 [facility] HEMATOLOGY MCH 26.9 27.0 - 31.0 03/14/2016 [facility] HEMATOLOGY MPV 10.4 7.4 - 10.4 03/14/2016 [facility] HEMATOLOGY RDW 14.0 11.5 - 14.5 03/14/2016 [facility] MCHC 33.5 32.0 - 36.0 03/14/2016 [facility] HEMATOLOGY Platelet 189 133 - 450 03/14/2016 [facility] HEMATOLOGY PTT 30.4 22.9 - 35.8 03/14/2016 [facility] IMMUNOLOGY CDC HIV 4th GEN Negative (03/14/16 11:34 AM) Negative 03/14/2016 [facility] IMMUNOLOGY [place]-Hep C Ab Negative *NA* (03/14/16 11:34 AM) Negative 03/14/2016 [facility] URINE AND STOOL UA Urobilinogen <=1.0 mg/dL 0.1 - 1.0 03/14/2016 [facility] URINE AND STOOL UA Color Ltyellow 03/14/2016 [facility] URINE AND STOOL UA Sq Epi Few /LPF Few /LPF 03/14/2016 [facility] URINE AND STOOL UA WBC 3 0 - 5 03/14/2016 [facility] URINE AND STOOL UA RBC 1 0 - 2 03/14/2016 [facility] URINE AND STOOL UA Bili Negative *NA* (03/14/16 11:34 AM) Negative 03/14/2016 [facility] URINE AND STOOL UA Blood Negative (03/14/16 11:34 AM) Negative 03/14/2016 [facility] URINE AND STOOL UA Ketones Negative mg/dL Negative mg/dL 03/14/2016 [facility] URINE AND STOOL UA Glucose Negative mg/dL Negative mg/dL 03/14/2016 [facility] URINE AND STOOL UA Turbidity Clear (03/14/16 11:34 AM) Clear 03/14/2016 [facility] URINE AND STOOL UA Nitrite Negative (03/14/16 11:34 AM) Negative 03/14/2016 [facility] URINE AND STOOL UA Leuk Est Small *ABN* (03/14/16 11:34 AM) Negative 03/14/2016 [facility] URINE AND STOOL UA pH 7.0 5.0 - 8.0 03/14/2016 [facility] URINE AND STOOL UA Spec Grav 1.013 <=1.030 03/14/2016 [facility] URINE AND STOOL UA Protein Negative mg/dL Negative mg/dL 03/14/2016 [facility] CHEM PANEL Bili Indirect 0.3 0.0 - 1.0 03/16/2015 [facility] CHEM PANEL Bili Total 0.4 0.2 - 1.3 03/16/2015 [facility] CHEM PANEL Bili Direct 0.1 0.0 - 0.3 03/16/2015 [facility] CHEM PANEL Albumin Lvl 4.0 3.5 - 5.0 03/16/2015 [facility] CHEM PANEL Alk Phos 124 39 - 136 03/16/2015 [facility] CHEM PANEL Total Protein 7.9 6.4 - 8.4 03/16/2015 [facility] CHEM PANEL Globulin 3.9 2.0 - 4.0 03/16/2015 [facility] CHEM PANEL A/G Ratio 1.0 0.7 - 1.6 03/16/2015 [facility] CHEM PANEL ALT 34 0 - 65 03/16/2015 [facility] CHEM PANEL AST 15 0 - 37 03/16/2015 [facility] CHEM PANEL eGFR 97 03/16/2015 Result Comment: The eGFR is calculated using the [...] from the National Kidney Disease Education Program (NKDEP) which additionally recommends that when the eGFR is used in patients with extremes of body mass index for purposes of drug dosing, the eGFR should be multiplied by the estimated BMI. [facility] CHEM PANEL Creatinine Lvl 0.7 0.5 - 1.4 03/16/2015 [facility] CHEM PANEL Potassium Lvl 4.2 3.5 - 5.1 03/16/2015 [facility] CHEM PANEL Sodium Lvl 139 135 - 145 03/16/2015 [facility] CHEM PANEL Calcium Lvl 8.9 8.5 - 10.5 03/16/2015 [facility] CHEM PANEL Chloride Lvl 105 95 - 109 03/16/2015 [facility] CHEM PANEL BUN 13 7 - 22 03/16/2015 [facility] CHEM PANEL Glucose Lvl 103 70 - 99 03/16/2015 [facility] CHEM PANEL CO2 27 24 - 32 03/16/2015 [facility] HEMATOLOGY WBC 6.3 3.7 - 10.4 03/16/2015 [facility] HEMATOLOGY PT 12.5 12.0 - 14.7 03/16/2015 [facility] HEMATOLOGY PTT 31.5 22.9 - 35.8 03/16/2015 [facility] HEMATOLOGY INR 0.90 0.85 - 1.17 03/16/2015 [facility] HEMATOLOGY Platelet 198 133 - 450 03/16/2015 [facility] Pathology Reports No Data Provided for This Section Diagnostic Reports Report Value Date Source Carotid artery Doppler bilat US EXAM: US EXTRACRANIAL ARTERIAL DOPPLER DATE: 12/09/2018 2:05 PM CDT INDICATION: I10 Essential (primary) hypertension - I10 Essential (primary) hypertension COMPARISON: 03/30/2016 TECHNIQUE: Multiplanar grayscale, color Doppler and spectral Doppler ultrasound images of the carotid and vertebral arteries. DISCUSSION: Right Carotid System: Right Common Carotid Artery (RCCA): / 77 cm/s Right Internal Carotid Artery (CHRISTIAN): / 80 cm/s Right External Carotid Artery (RECA): 77 cm/s Right Vertebral Artery (RVA): 50 cm/s. Antegrade flow with normal waveform. Left Carotid System: Left Common Carotid Artery (LCCA): /86 cm/s Left Internal Carotid Artery (LICA): / 84 cm/s Left External Carotid Artery (LECA): 78 cm/s Left Vertebral Artery (LVA): 36 cm/s. Antegrade flow with normal waveform. The ICA/CCA ratio on the right is 1.01 and on the left is 0.97. IMPRESSION: 1. Right internal carotid artery: Normal (no stenosis). 2. Left internal carotid artery: Normal (no stenosis). 3. Vertebral arteries: Antegrade flow with normal waveforms bilaterally. According to the 2003 Consensus criteria: <50% stenosis: PSV <125 cm/sec, EDV <40cm/sec, ICA:CCA ratio <2 50-69% stenosis: PSV 125-230cm/sec, EDV 40-100cm/sec, ICA:CCA ratio 2-4 >70% stenosis: PSV >230cm/sec, EDV >100cm/sec, ICA:CCA ratio >4 Reference: Radiology. 2003 [id number]. Carotid Artery Stenosis: Wisdom-scale and Doppler US diagnosis- Society of Radiologists in Ultrasound Consensus Conference. Donny EG, Sulaiman CB, Marta GL, et. al. 12/09/2018 [facility] [place] Chest 2 views DX EXAM: XR CHEST 2 VIEWS DATE: 11/16/2018 12:11 CDT INDICATION: - chest pain COMPARISON: 03/14/2016 TECHNIQUE: PA and lateral chest radiographs FINDINGS: No pulmonary or pleural-based abnormality is identified. The heart size is normal. No acute bony abnormality is identified. IMPRESSION: No acute cardiopulmonary abnormality. 11/16/2018 [facility] Carotid artery Doppler bilat US Patient Name: ANIL BARRON : 1960; Age: 55 years y/o Female MR: [id number] Study: Carotid artery Doppler bilat US 03/30/2016 8:57 AM CDT Ordering Physician: Karthik Bird MD Clinical Indication: SYNCOPE AND COLLAPSE; Comparison: None TECHNIQUE: Wisdom-scale, color Doppler and spectral Doppler of the carotid arteries was performed. Any reported ICA stenoses indirectly reference the distal internal carotid diameter as the denominator for the stenosis measurement, utilizing consensus panel criteria. FINDINGS: RIGHT: No significant plaque ICA PSV 97 cm/sec CCA PSV 81 cm/sec ICA/CCA ratio 1.2 Vertebral flow is antegrade. External carotid artery is patent. LEFT: No significant plaque ICA PSV 109 cm/sec CCA PSV 126 cm/sec ICA/CCA ratio 0.9 Vertebral flow is antegrade. External carotid artery is patent. IMPRESSION: 1. RIGHT: ICA stenosis <50 % by velocity criteria. 1. LEFT: ICA stenosis <50 % by velocity criteria. Consensus panel Doppler US criteria for diagnosis of ICA stenosis: Stenosis (%) ICA PSV (cm/sec) ICA/CCA ratio <50 <125 <2.0 50-69 125-230 2.0-4.0 >70 but less than >230 >4.0 near occlusion Near occlusion High, low, or Variable undetectable SL: [id number] 03/30/2016 [facility] Brain wo contrast MRI Patient Name: ANIL BARRON : 1960; Age: 55 years y/o Female MR: [id number] Study: Brain wo contrast MRI 03/14/2016 2:43 PM CDT Ordering Physician: Karyn Garcia MD Clinical Indication: Left-sided weakness; dizziness Comparison: CT head dated 03/14/2016 TECHNIQUE: Multiplanar MRI of the brain is performed on a 1.5 Kaela magnet. Contrast: None. FINDINGS: BRAIN PARENCHYMA: No abnormal signal identified on diffusion-weighted imaging to suggest an acute infarction. No abnormal areas of signal intensity identified about the brain. No extra-axial fluid collection, mass effect or shift. CEREBELLOPONTINE REGIONS AND SKULL BASE: The craniocervical junction, skull base and pituitary gland are unremarkable. Cerebellar pontine angles unremarkable bilaterally. VENTRICLES: The ventricles and sulci are within normal limits for the patient's age. VESSELS: Normal flow voids identified in the major vessels at the base of the brain. ORBITS, VISUALIZED PARANASAL SINUSES AND MASTOIDS: Small amount of posterior left ethmoid sinus disease. IMPRESSION: 1. Small amount of posterior left ethmoid sinus disease. 2. Otherwise unremarkable brain MRI without contrast. SL: [id number] 03/14/2016 [facility] Chest 1view DX Patient Name: ANIL BARRON : 1960; Age: 55 years y/o Female MR: [id number] Study: Chest 1view DX 03/14/2016 10:56 AM CDT Ordering Physician: Clinical Indication: Shortness of Breath; Comparison: 02/08/2013 1 view chest Lungs are clear. Cardiomediastinal silhouette normal. No pleural effusion or pneumothorax. No osseous abnormality. IMPRESSION: Negative. SL: [id number] 03/14/2016 [facility] Brain wo contrast CT Patient Name: ANIL BARRON : 1960; Age: 55 years Female MR: [id number] Study: Brain wo contrast CT 03/14/2016 10:56 AM CDT Clinical Indication: Confusion. pt states she took her blood pressure AND IT WAS HIGH LEFT ARM NUMBNESS AND DIZZINESS COMPARISON: None TECHNIQUE: CT images were obtained from the foramen magnum to the vertex without the use of intravenous contrast on a multidetector CT. Coronal and sagittal reconstructions were obtained. FINDINGS: BRAIN PARENCHYMA: There are normal wisdom-white interfaces, sulci and gyri. There is no mass effect or midline shift. There is no extra-axial fluid collection, intraventricular or intraparenchymal hemorrhage. The sella and pineal regions are normal. The skull base, cerebellum and brainstem are normal. VENTRICLES: The ventricles are normal in size and configuration. The basilar cisterns are normal. ORBITS, MASTOIDS AND PARANASAL SINUSES: The visualized orbits are normal. Mild left ethmoid sinus mucosal thickening. The mastoid air cells are clear. SKULL: There are no osseous abnormalities. If there is further concern for intracranial pathology or acute stroke, MRI of the brain may be performed for complete assessment. IMPRESSION: Normal noncontrast head CT. No mass, hemorrhage or subacute stroke. SL: [id number] 03/14/2016 [facility] Consultation Notes No Data Provided for This Section Discharge Summaries No Data Provided for This Section History and Physicals No Data Provided for This Section Vital Signs Vital Sign Value Date Comments Source Systolic (mm Hg) 139 01/27/2019 [facility] Diastolic (mm Hg) 88 01/27/2019 [facility] Heart Rate 104 01/27/2019 [facility] Respitory Rate 18 01/27/2019 [facility] Temperature Oral (F) 99.1 F 01/27/2019 [facility] Height 154.94 cm 01/27/2019 [facility] Weight 83.807 01/27/2019 [facility] BMI Calculated 34.91 01/27/2019 [facility] BMI Calculated 35.25 11/19/2018 [facility] Weight 84.631 11/19/2018 [facility] Height 154.94 cm 11/19/2018 [facility] Temperature Oral (F) 98.4 F 11/19/2018 [facility] Respitory Rate 18 11/19/2018 [facility] Heart Rate 75 11/19/2018 [facility] Systolic (mm Hg) 127 11/19/2018 [facility] Diastolic (mm Hg) 77 11/19/2018 [facility] Systolic (mm Hg) 128 11/16/2018 [facility] Diastolic (mm Hg) 69 11/16/2018 [facility] Temperature Oral (F) 97.5 F 11/16/2018 [facility] Respitory Rate 18 11/16/2018 [facility] Respitory Rate 16 11/16/2018 [facility] Systolic (mm Hg) 138 11/16/2018 [facility] Diastolic (mm Hg) 74 11/16/2018 [facility] Heart Rate 77 11/16/2018 [facility] Systolic (mm Hg) 138 11/16/2018 [facility] Diastolic (mm Hg) 75 11/16/2018 [facility] Respitory Rate 18 11/16/2018 [facility] Height 157.48 cm 11/16/2018 [facility] BMI Calculated 32.81 11/16/2018 [facility] Weight 81.364 11/16/2018 [facility] Temperature Oral (F) 97.7 F 11/16/2018 [facility] Heart Rate 87 11/16/2018 [facility] BMI Calculated 32.83 11/26/2017 [facility] Weight 84.602 11/26/2017 [facility] Height 160.53 cm 11/26/2017 [facility] Temperature Oral (F) 98.0 F 11/26/2017 [facility] Respitory Rate 16 11/26/2017 [facility] Systolic (mm Hg) 147 11/26/2017 [facility] Diastolic (mm Hg) 85 11/26/2017 [facility] Heart Rate 102 11/26/2017 [facility] BMI Calculated 37.45 06/12/2017 [facility] Weight 96.818 06/12/2017 [facility] Systolic (mm Hg) 106 06/12/2017 [facility] Diastolic (mm Hg) 72 06/12/2017 [facility] Respitory Rate 20 06/12/2017 [facility] Heart Rate 67 06/12/2017 [facility] Height 160.78 cm 06/12/2017 [facility] Temperature Oral (F) 98.2 F 06/12/2017 [facility] Height 157.48 cm 03/30/2017 [facility] Weight 85.966 03/30/2017 [facility] BMI Calculated 34.66 03/30/2017 [facility] Heart Rate 70 03/30/2017 [facility] Respitory Rate 16 03/30/2017 [facility] Temperature Oral (F) 97.6 F 03/30/2017 [facility] Systolic (mm Hg) 122 03/30/2017 [facility] Diastolic (mm Hg) 80 03/30/2017 [facility] Heart Rate 76 10/31/2016 [facility] Respitory Rate 18 10/31/2016 [facility] Temperature Oral (F) 97.9 F 10/31/2016 [facility] BMI Calculated 34.94 10/31/2016 [facility] Height 155.19 cm 10/31/2016 [facility] Weight 84.148 10/31/2016 [facility] Systolic (mm Hg) 147 10/31/2016 [facility] Diastolic (mm Hg) 86 10/31/2016 [facility] Systolic (mm Hg) 134 08/01/2016 [facility] Diastolic (mm Hg) 88 08/01/2016 [facility] Temperature Oral (F) 97.9 F 08/01/2016 [facility] Heart Rate 78 08/01/2016 [facility] Respitory Rate 18 08/01/2016 [facility] Weight 82.727 08/01/2016 [facility] BMI Calculated 33.36 08/01/2016 [facility] Height 157.48 cm 08/01/2016 [facility] BMI Calculated 31.65 04/18/2016 [facility] Weight 78.5 04/18/2016 [facility] Height 157.48 cm 04/18/2016 [facility] Temperature Oral (F) 97.7 F 04/18/2016 [facility] Systolic (mm Hg) 148 04/18/2016 [facility] Diastolic (mm Hg) 78 04/18/2016 [facility] Heart Rate 87 04/18/2016 [facility] Respitory Rate 18 04/18/2016 [facility] Weight 77.273 04/10/2016 [facility] BMI Calculated 31.16 04/10/2016 [facility] Height 157.48 cm 04/10/2016 [facility] Height 157.48 cm 04/04/2016 [facility] Weight 79.205 04/04/2016 [facility] BMI Calculated 31.94 04/04/2016 [facility] Heart Rate 83 04/04/2016 [facility] Temperature Oral (F) 97.1 F 04/04/2016 [facility] Respitory Rate 20 04/04/2016 [facility] Systolic (mm Hg) 165 04/04/2016 [facility] Diastolic (mm Hg) 81 04/04/2016 [facility] Respitory Rate 18 03/15/2016 [facility] Heart Rate 90 03/15/2016 [facility] Temperature Oral (F) 98.7 F 03/15/2016 [facility] Systolic (mm Hg) 160 03/15/2016 [facility] Diastolic (mm Hg) 82 03/15/2016 [facility] Weight 78.892 03/15/2016 [facility] Heart Rate 84 03/15/2016 [facility] Temperature Oral (F) 98.0 F 03/15/2016 [facility] Systolic (mm Hg) 154 03/15/2016 [facility] Diastolic (mm Hg) 80 03/15/2016 [facility] Respitory Rate 18 03/15/2016 [facility] Respitory Rate 18 03/15/2016 [facility] Heart Rate 76 03/15/2016 [facility] Temperature Oral (F) 98.0 F 03/15/2016 [facility] Systolic (mm Hg) 132 03/15/2016 [facility] Diastolic (mm Hg) 70 03/15/2016 [facility] BMI Calculated 30.98 03/14/2016 [facility] Weight 76.818 03/14/2016 [facility] Height 157.48 cm 03/14/2016 [facility] Weight 76.818 03/14/2016 [facility] BMI Calculated 30.98 03/14/2016 [facility] Height 157.48 cm 03/14/2016 [facility] Systolic (mm Hg) 146 03/20/2015 [facility] Diastolic (mm Hg) 63 03/20/2015 [facility] Systolic (mm Hg) 148 03/20/2015 [facility] Diastolic (mm Hg) 66 03/20/2015 [facility] Systolic (mm Hg) 140 03/20/2015 [facility] Diastolic (mm Hg) 73 03/20/2015 [facility] Respitory Rate 15 03/20/2015 [facility] Respitory Rate 15 03/19/2015 [facility] Respitory Rate 14 03/19/2015 [facility] Temperature Oral (F) 97.8 F 03/16/2015 [facility] Heart Rate 74 03/16/2015 [facility] BMI Calculated 33.36 03/16/2015 [facility] Weight 82.727 03/16/2015 [facility] Height 157.48 cm 03/16/2015 [facility] Encounters Location Location Details Encounter Type Encounter Number Reason For Visit Attending Provider ADM Date DC Date Status Source [facility] OBS Day Surgery [id number] Randall Flanagan Jr 03/19/2015 03/20/2015 [facility] OP Therapy Patients [id number] Randall Flanagan Jr 03/30/2015 04/29/2015 [facility] OP Therapy Patients [id number] Randall Flanagan Jr 04/29/2015 05/29/2015 [facility] OP Therapy Patients [id number] Randall Flanagan Jr 06/09/2015 07/09/2015 [facility] OP Therapy Patients [id number] Randall Flanagan Jr 07/13/2015 08/12/2015 [facility] Observation [id number] Lolis Castañeda 03/14/2016 03/15/2016 [facility] Outpatient [id number] Karthik Bird 03/30/2016 03/31/2016 [facility] Outpatient [id number] Johnathan Newman 04/04/2016 04/05/2016 [facility] Outpatient [id number] Johnathan Newman 04/10/2016 04/11/2016 [facility] Outpatient [id number] Johnathan Newman 04/18/2016 04/19/2016 [facility] Phone Message [id number] 05/24/2016 05/26/2016 [facility] Outpatient [id number] Johnathan Newman 08/01/2016 08/02/2016 [facility] Outpatient [id number] Rosasbelle Newman 10/31/2016 11/01/2016 [facility] Phone Message [id number] 11/24/2016 11/26/2016 [facility] Phone Message [id number] 11/24/2016 11/26/2016 [facility] Outpatient [id number] Daveynejonybelle Newman 03/30/2017 03/31/2017 [facility] Outpatient [id number] Daveynejonybelle Newman 06/12/2017 06/13/2017 [facility] Phone Message [id number] 06/12/2017 06/14/2017 [facility] Outpatient [id number] Daveynejonybelle Newman 11/26/2017 11/27/2017 [facility] Phone Message [phone] 10/07/2018 10/09/2018 [facility] [place] [facility] Phone Message [phone] 10/07/2018 10/09/2018 [facility] Emergency [id number] Rajesh Keating 11/16/2018 11/16/2018 [facility] Outpatient [id number] Daveynedorothy Newman 11/19/2018 11/20/2018 [facility] [place] [facility] [id number] Johnathan Newman 12/09/2018 12/10/2018 [facility] Outpatient [id number] Daveynedorothy Newman 01/27/2019 01/28/2019 [facility] Procedures Procedure Code Date Perfomer Comments Source Appendectomy [id number] [facility], [facility], [facility] Arthroscopy of knee<sup>1</sup> [id number] left [facility], [facility], [facility] Cardiac catheterization [id number] [facility], [facility], [facility] CTR - Carpal tunnel release<sup>2</sup> [id number] bilateral [facility], [facility] Epidural anesthesia<sup>3</sup> [id number] X4-childbirth [facility], [facility] Partial hysterectomy [id number] [facility], [facility] Tonsillectomy [id number] [facility], [facility] Endoscopy [id number] [facility], [facility] Assessment and Plan Assessment and Plan Date Source Extracted from:Title: Neurology Progress Note Author: Karthik Bird MD Date: 03/15/16 Impression and Plan 1. Subjective complaints of left hemibody weakness and numbness - negative MRI - likely conversion/nonorganic etiology. 2. Hypertension. 3. Palpitations. 4. Lightheadedness. PLAN: The patient is being monitored on telemetry, MRI of brain showed no acute intracranial abnormality. Patient is on aspirin 81 mg start low dose atorvastatin Neurology clinic follow up as needed. d/w the pt, primary team 03/15/2016 [facility] Plan of Care No Data Provided for This Section Social History Social History Date Source Social History TypeResponse Alcohol Never Smoking Status Never smoker; Exposure to Tobacco Smoke None; Cigarette Smoking Last 365 Days No; Reg Smoking Cessation Counseling No; Other Tobacco Frequency QUIT SMOKING 25 YEARS AGO; entered on: 01/27/19 03/16/2015 [facility] Social History TypeResponse Alcohol Never Smoking Status Never smoker; Exposure to Tobacco Smoke None; Cigarette Smoking Last 365 Days No; Reg Smoking Cessation Counseling No; Other Tobacco Frequency QUIT SMOKING 25 YEARS AGO; entered on: 11/26/17 03/16/2015 [facility] Social History TypeResponse Alcohol Never Smoking Status Never smoker; Exposure to Tobacco Smoke None; Cigarette Smoking Last 365 Days No; Reg Smoking Cessation Counseling No 03/16/2015 [facility] Social History TypeResponse Alcohol Never Smoking Status Never smoker; Exposure to Tobacco Smoke None; Cigarette Smoking Last 365 Days No; Reg Smoking Cessation Counseling No 03/16/2015 [facility] Social History TypeResponse Alcohol Never Smoking Status Never smoker; Exposure to Tobacco Smoke None; Cigarette Smoking Last 365 Days No; Reg Smoking Cessation Counseling No; Other Tobacco Frequency QUIT SMOKING 25 YEARS AGO; entered on: 11/19/18 03/16/2015 [facility] Family History No Data Provided for This Section Advance Directives No Data Provided for This Section Functional Status No Data Provided for This Section
--- OUTSIDE RECORDS SUMMARY | 2019-02-04 12:46 | XMS REPORT | Summary of Care ---
Author Author [facility] Address Unknown Phone Unavailable Encounter HQ Milind(FIN) [id number] Date(s): 04/29/15 - 05/28/15 [facility] Discharge Disposition: Home Attending Physician: Randall [...] Epidural anesthesia3 Partial hysterectomy Tonsillectomy 1left 2bilateral [id number] Social History Social History Type Response Alcohol Never Smoking Status Never smoker; Exposure to Tobacco Smoke None; Cigarette Smoking Last 365 Days No; Reg Smoking Cessation Counseling No Assessment and Plan No data available for this section
--- OUTSIDE RECORDS SUMMARY | 2019-02-04 12:46 | XMS REPORT | Summary of Care ---
Author Author [facility] Organization [facility] Address Unknown Phone Unavailable Encounter ASHLI Vaz(JOSE) [id number] Date(s): 03/14/16 - 03/15/16 [facility] [address] [place] [address]- [phone] Discharge Disposition: Home or Self Care Attending Physician: Lolis Castañeda MD Admitting Physician: Lolis Castañeda MD Vital Signs Most recent to 1 2 3 4 oldest [Reference Range]: Height 157.48 cm 157.48 cm (03/14/16 4:27 PM) (03/14/16 9:55 AM) Temperature Oral 98.7 DegF 98.0 DegF 98.0 DegF [96.4-99.1 DegF] (03/15/16 11:09 AM) (03/15/16 7:06 AM) (03/15/16 4:01 AM) Blood Pressure 160/82 mmHg 154/80 mmHg 132/70 mmHg [90-140/60-90 mmHg] *HI* *HI* (03/15/16 4:01 AM) (03/15/16 11:09 AM) (03/15/16 7:06 AM) Respiratory Rate 18 BRMIN 18 BRMIN 18 BRMIN 18 BRMIN [14-20 BRMIN] (03/15/16 11:09 AM) (03/15/16 7:06 AM) (03/15/16 4:01 AM) (03/15/16 4:01 AM) Peripheral Pulse 90 bpm 84 bpm 76 bpm 74 bpm Rate [60-100 bpm] (03/15/16 11:09 AM) (03/15/16 7:06 AM) (03/15/16 4:01 AM) (03/15/16 4:01 AM) Weight 78.892 kg 76.818 kg 76.818 kg (03/15/16 8:23 AM) (03/14/16 4:27 PM) (03/14/16 9:55 AM) Body Mass Index 30.98 m2 30.98 m2 (03/14/16 4:27 PM) (03/14/16 9:55 AM) Problem List Condition Effective Dates Status Health Status Informant Acute Active gastroenteritis(Conf irmed) Acute Resolved pyelonephritis(Confi rmed) Asthma(Confirmed) Resolved Atrial Resolved fibrillation(Confirm ed) H/O type A viral Resolved hepatitis(Confirmed) Hypercholesterolemia Active (Confirmed) Hypertension(Confirm Resolved ed) Allergies, Adverse Reactions, Alerts Substance Reaction Severity Status NKDA Active Medications Advair Diskus 250 mcg-50 mcg inhalation powder 1 puff, Route: INHALATION, Drug Form: AERO, Dosing Weight 76.818, kg, BID, Start date: 03/15/16 9:00:00 CDT, Duration: 30 day, Stop date: 04/13/16 17:00:00 CDT Start Date: 03/15/16 Stop Date: 03/15/16 Status: Deleted aspirin 81 mg tablet, enteric coated 81 mg, 1 tab, Route: PO, Drug form: ECTAB, Daily, Dosing Weight 76.818, kg, Star t date: 03/15/16 6:00:00 CDT, Duration: 30 day, Stop date: 04/13/16 9:00:00 CDT Notes: Do not crush or chew.(Same As: Ecotrin) Start Date: 03/15/16 Stop Date: 03/15/16 Status: Discontinued atorvastatin 40 mg, 1 tab, Route: PO, Drug form: TAB, Bedtime, Dosing Weight 76.818, kg, Star t date: 03/15/16 21:00:00 CDT, Duration: 30 day, Stop date: 04/13/16 21:00:00 CD T Notes: (Same as: Lipitor) Start Date: 03/15/16 Stop Date: 03/15/16 Status: Canceled atorvastatin 10 mg, 1 tab, Route: PO, Drug form: TAB, Bedtime, Dosing Weight 76.818, kg, Star t date: 03/15/16 21:00:00 CDT, Duration: 30 day, Stop date: 04/13/16 21:00:00 CD T Notes: (Same As: Lipitor) Start Date: 03/15/16 Stop Date: 03/15/16 Status: Canceled Dulera 100 mcg-5 mcg/inh inhalation aerosol 2 puff, Route: INHALER, Drug Form: AERO, Dosing Weight 76.818, kg, BID, Start da te: 03/15/16 9:00:00 CDT, Duration: 30 day, Stop date: 04/13/16 17:00:00 CDT Start Date: 03/15/16 Stop Date: 03/15/16 Status: Canceled hydrochlorothiazide-triamterene 25 mg-37.5 mg oral capsule 1 tab, Route: PO, Drug Form: TAB, Dosing Weight 76.818, kg, Daily, Start date: 9:00:00 CDT, Duration: 30 day, Stop date: 04/13/16 9:00:00 CDT Notes: (triamterene-hydrochlorothiazide 37.5-25 mg TAB)(Same As: Maxzide-25) Start Date: 03/15/16 Stop Date: 03/15/16 Status: Discontinued influenza virus vaccine, inactivated 0.5 mL, Route: IM, Drug Form: SUSP, Daily, Start date: 03/15/16 9:00:00 CDT, Dur ation: 1 doses or times, Stop date: 03/15/16 9:00:00 CDT Notes: (Same as: Fluzone Quadrivalent, Fluarix Quadrivalent)For 3 years of age a nd older (0.5 mL IM)Shake well before use Start Date: 03/15/16 Stop Date: 03/15/16 Status: Completed lisinopril 10 mg, 1 tab, Route: PO, Drug form: TAB, Daily, Dosing Weight 76.818, kg, Start date: 03/15/16 9:00:00 CDT, Duration: 30 day, Stop date: 04/13/16 9:00:00 CDT Notes: (Same as: Prinivil, Zestril) Start Date: 03/15/16 Stop Date: 03/15/16 Status: Discontinued Maxalt 5 mg, PO, Daily, PRN migraine/headache, 0 Refill(s) Start Date: 03/14/16 Stop Date: 03/15/16 Status: Discontinued Maxalt 5 mg, 0.5 tab, Route: PO, Drug form: TAB, ONCE, Dosing Weight 76.818, kg, PRN He adache 7-10, Start date: 03/14/16 23:57:00 CDT Notes: Same as Maxalt Non Formulary item Start Date: 03/14/16 Stop Date: 03/15/16 Status: Completed Maxalt 5 mg oral tablet 5 mg, PO, Daily, PRN migraine/headache, # 9 tab, 0 Refill(s) Start Date: 03/15/16 Status: Ordered pneumococcal 23-valent vaccine 0.5 mL, Route: IM, Daily, Start date: 03/15/16 9:00:00 CDT, Duration: 1 doses or times, Stop date: 03/15/16 9:00:00 CDT Start Date: 03/15/16 Stop Date: 03/14/16 Status: Deleted Saline Flush 0.9% 10 mL, Route: IVP, Drug Form: INJ, Dosing Weight 76.818, kg, PRN, PRN Line Flush , Start date: 03/14/16 10:56:00 CDT, Duration: 30 day, Stop date: 04/13/16 10:55 :00 CDT Notes: (Same as: BD Posiflush) Start Date: 03/14/16 Stop Date: 03/14/16 Status: Discontinued Singulair 10 mg, 1 tab, Route: PO, Drug form: TAB, Bedtime, Dosing Weight 76.818, kg, Star t date: 03/15/16 21:00:00 CDT, Duration: 30 day, Stop date: 04/13/16 21:00:00 CD T Notes: (Same as:Singulair) Start Date: 03/15/16 Stop Date: 03/15/16 Status: Canceled Sodium Chloride 0.9% (Bolus) IV 1,000 mL, Infuse Over: 1 hr, Route: IV, ONCE, Priority: STAT, Dosing Weight 76.8 18 kg, Start date: 03/14/16 10:56:00 CDT, Duration: 1 doses or times, Stop date: 03/14/16 10:56:00 CDT Start Date: 03/14/16 Stop Date: 03/14/16 Status: Completed Symbicort 160/4.5 inhalation aerosol with adapter 2 puff, Route: INHALER, Drug Form: AERO/A, Dosing Weight 76.818, kg, BID, Start date: 03/15/16 9:00:00 CDT, Duration: 30 day, Stop date: 04/13/16 17:00:00 CDT Start Date: 03/15/16 Stop Date: 03/15/16 Status: Canceled Tylenol 650 mg, 20.3 mL, Route: PO, Drug form: LIQ, Q4H, Dosing Weight 76.818, kg, PRN P ain Score 1-3, Start date: 03/14/16 21:06:00 CDT, Duration: 30 day, Stop date: 06/13/15 21:05:00 CDT Notes: Max enekzgnidlnht=9968cp/day (4 gm/day). (Same as: Tylenol) Start Date: 03/14/16 Stop Date: 03/15/16 Status: Discontinued Zofran 4 mg, 2 mL, Route: IV, Drug form: INJ, Q6H, Dosing Weight 76.818, kg, PRN as nee ded for nausea/vomiting, Priority: NOW, Start date: 03/14/16 18:33:00 CDT, Durat ion: 30 day, Stop date: 04/13/16 18:32:00 CDT Notes: (Same as: Zofran) MEDICATION WASTE Product Size: 4 mgProduct Was pooja: ___ mg Start Date: 03/14/16 Stop Date: 03/15/16 Status: Discontinued Zofran ODT 4 mg, 1 tab, Route: PO, Drug form: TABDIS, Q8H, Dosing Weight 78.892, kg, PRN Na usea, Start date: 03/15/16 13:51:00 CDT, Duration: 30 day, Stop date: 04/14/16 1 3:50:00 CDT Notes: (Same as: Zofran ODT) Start Date: 03/15/16 Stop Date: 03/15/16 Status: Discontinued Zofran ODT 4 mg oral tablet, disintegrating 4 mg, PO, Q8H, PRN Nausea, X 5 day, # 15 tab, 0 Refill(s) Start Date: 03/15/16 Stop Date: 03/20/16 Status: Ordered Zomig 5 mg oral tablet 5 mg=1 tab, PO, Daily, PRN Headache/Migraine, # 10 tab, 0 Refill(s) Start Date: 03/14/16 Status: Ordered Results ELECTROLYTES Most recent to 1 oldest [Reference Range]: Sodium Lvl [135-145 141 mEq/L mEq/L] (03/14/16 11:34 AM) Potassium Lvl 3.8 mEq/L [3.5-5.1 mEq/L] (03/14/16 11:34 AM) Chloride Lvl [95-109 109 mEq/L mEq/L] (03/14/16 11:34 AM) CO2 [24-32 mEq/L] 28 mEq/L (03/14/16 11:34 AM) AGAP [10.0-20.0 7.8 mEq/L mEq/L] *LOW* (03/14/16 11:34 AM) CHEM PANEL Most recent to 1 oldest [Reference Range]: Creatinine Lvl 0.64 mg/dL [0.50-1.40 mg/dL] (03/14/16 11:34 AM) eGFR 99 mL/min/1.73m2 1 *NA* (03/14/16 11:34 AM) BUN [7-22 mg/dL] 13 mg/dL (03/14/16 11:34 AM) Glucose Lvl [70-99 108 mg/dL mg/dL] *HI* (03/14/16 11:34 AM) Calcium Lvl 8.6 mg/dL [8.5-10.5 mg/dL] (03/14/16 11:34 AM) 1Result Comment: The eGFR is calculated [...] be mul tiplied by the estimated BMI. CARDIAC ENZYMES Most recent to 1 oldest [Reference Range]: Total CK [12-191 81 unit/L unit/L] (03/14/16 11:34 AM) CK MB [0.5-3.6 1.3 ng/mL ng/mL] (03/14/16 11:34 AM) CK MB Index 1.6 [0.0-2.5] (03/14/16 11:34 AM) Troponin-I <0.02 ng/mL [0.00-0.40 ng/mL] (03/14/16 11:34 AM) LIPIDS Most recent to 1 oldest [Reference Range]: CHD Risk [3.90-5.80] 4.38 (03/15/16 3:36 AM) Chol [<=199 mg/dL] 175 mg/dL (03/15/16 3:36 AM) Trig [<=149 mg/dL] 110 mg/dL (03/15/16 3:36 AM) HDL [>=61 mg/dL] 40 mg/dL *LOW* (03/15/16 3:36 AM) LDL (Calculated) 113 mg/dL [<=99 mg/dL] *HI* (03/15/16 3:36 AM) VLDL 22 *NA* (03/15/16 3:36 AM) URINE AND STOOL Most recent to 1 oldest [Reference Range]: UA Turbidity [Clear] Clear (03/14/16 11:34 AM) UA Color Ltyellow *NA* (03/14/16 11:34 AM) UA pH [5.0-8.0] 7.0 (03/14/16 11:34 AM) UA Spec Grav 1.013 [<=1.030] (03/14/16 11:34 AM) UA Glucose [Negative Negative mg/dL mg/dL] *NA* (03/14/16 11:34 AM) UA Blood [Negative] Negative (03/14/16 11:34 AM) UA Ketones [Negative Negative mg/dL mg/dL] *NA* (03/14/16 11:34 AM) UA Protein [Negative Negative mg/dL mg/dL] (03/14/16 11:34 AM) UA Urobilinogen <=1.0 mg/dL [0.1-1.0 mg/dL] *NA* (03/14/16 11:34 AM) UA Bili [Negative] Negative *NA* (03/14/16 11:34 AM) UA Leuk Est Small [Negative] *ABN* (03/14/16 11:34 AM) UA Nitrite Negative [Negative] (03/14/16 11:34 AM) UA WBC [0-5 /HPF] 3 /HPF (03/14/16 11:34 AM) UA RBC [0-2 /HPF] 1 /HPF (03/14/16 11:34 AM) UA Sq Epi [Few /LPF] Few /LPF *NA* (03/14/16 11:34 AM) IMMUNOLOGY Most recent to 1 oldest [Reference Range]: CDC HIV 4th GEN Negative [Negative] (03/14/16 11:34 AM) [place]-Hep C Ab Negative [Negative] *NA* (03/14/16 11:34 AM) HEMATOLOGY Most recent to 1 oldest [Reference Range]: WBC [3.7-10.4 K/CMM] 5.7 K/CMM (03/14/16 11:34 AM) RBC [4.20-5.40 4.79 M/CMM M/CMM] (03/14/16 11:34 AM) Hgb [12.0-16.0 g/dL] 12.9 g/dL (03/14/16 11:34 AM) Hct [36.0-48.0 %] 38.5 % (03/14/16 11:34 AM) MCV [80.0-98.0 fL] 80.3 fL (03/14/16 11:34 AM) MCH [27.0-31.0 pg] 26.9 pg *LOW* (03/14/16 11:34 AM) MCHC [32.0-36.0 33.5 g/dL g/dL] (03/14/16 11:34 AM) RDW [11.5-14.5 %] 14.0 % (03/14/16 11:34 AM) Platelet [133-450 189 K/CMM K/CMM] (03/14/16 11:34 AM) MPV [7.4-10.4 fL] 10.4 fL (03/14/16 11:34 AM) Segs [45.0-75.0 %] 56.1 % (03/14/16 11:34 AM) Lymphocytes 34.2 % [20.0-40.0 %] (03/14/16 11:34 AM) Monocytes [2.0-12.0 7.1 % %] (03/14/16 11:34 AM) Eosinophils [0.0-4.0 1.6 % %] (03/14/16 11:34 AM) Basophils [0.0-1.0 1.0 % %] (03/14/16 11:34 AM) Segs-Bands # 3.2 K/CMM [1.5-8.1 K/CMM] (03/14/16 11:34 AM) Lymphocytes # 2.0 K/CMM [1.0-5.5 K/CMM] (03/14/16 11:34 AM) Monocytes # [0.0-0.8 0.4 K/CMM K/CMM] (03/14/16 11:34 AM) Eosinophils # 0.1 K/CMM [0.0-0.5 K/CMM] (03/14/16 11:34 AM) Basophils # [0.0-0.2 0.1 K/CMM K/CMM] (03/14/16 11:34 AM) PT [12.0-14.7 12.5 seconds seconds] (03/14/16 11:34 AM) INR [0.85-1.17] 0.91 (03/14/16 11:34 AM) D-Dimer 0.22 ug/mL FEU *NA* (03/14/16 12:24 PM) PTT [22.9-35.8 30.4 seconds seconds] (03/14/16 11:34 AM) Immunizations Given and Recorded Vaccine Date Status Refusal Reason influenza virus vaccine, inactivated 03/15/16 Given influenza virus vaccine, inactivated 08/08/08 Given pneumococcal 23-valent vaccine 04/19/07 Given Procedures Procedure Date Related Diagnosis Body Site Appendectomy Arthroscopy of knee1 Cardiac catheterization CTR - Carpal tunnel release2 Epidural anesthesia3 Partial hysterectomy Tonsillectomy 1left 2bilateral [id number] Social History Social History Type Response Alcohol Never Smoking Status Never smoker; Exposure to Tobacco Smoke None; Cigarette Smoking Last 365 Days No; Reg Smoking Cessation Counseling No Assessment and Plan Extracted from: Title: Neurology Progress Note Author: Pelon Romancaliaudra Date: 03/15/16 Liv FLETCHER Impression and Plan 1. Subjective complaints of [...]
--- OUTSIDE RECORDS SUMMARY | 2019-02-04 12:46 | XMS REPORT | Summary of Care ---
Author Author [facility] Organization [facility] Address Unknown Phone Unavailable Encounter ASHLI Vaz(JOSE) [id number] Date(s): 04/18/16 - 04/18/16 [facility] [address] [facility], [address] Discharge Disposition: Home or Self Care Attending Physician: Johnathan Newman MD Referring Physician: Johnathan Newman MD Vital Signs Most recent to 1 oldest [Reference Range]: Height 157.48 cm (04/18/16 8:36 AM) Temperature Oral 97.7 DegF [96.4-99.1 DegF] (04/18/16 8:36 AM) Blood Pressure 148/78 mmHg [90-140/60-90 mmHg] *HI* (04/18/16 8:36 AM) Respiratory Rate 18 BRMIN [14-20 BRMIN] (04/18/16 8:36 AM) Peripheral Pulse 87 bpm Rate [60-100 bpm] (04/18/16 8:36 AM) Weight 78.5 kg (04/18/16 8:36 AM) Body Mass Index 31.65 m2 (04/18/16 8:36 AM) Problem List Condition Effective Dates Status Health Status Informant Acute Active gastroenteritis(Conf irmed) Acute Resolved pyelonephritis(Confi rmed) Asthma(Confirmed) Resolved Atrial Resolved fibrillation(Confirm ed) H/O type A viral Resolved hepatitis(Confirmed) Hypercholesterolemia Active (Confirmed) Hypertension(Confirm Resolved ed) Allergies, Adverse Reactions, Alerts Substance Reaction Severity Status NKDA Active Medications No Known Medications Results No data available for this section Immunizations Given and Recorded Vaccine Date Status Refusal Reason influenza virus vaccine, inactivated 03/15/16 Given influenza virus vaccine, inactivated 08/08/08 Given pneumococcal 23-valent vaccine 04/19/07 Given Procedures Procedure Date Related Diagnosis Body Site Appendectomy Arthroscopy of knee1 Cardiac catheterization CTR - Carpal tunnel release2 Epidural anesthesia3 Partial hysterectomy Tonsillectomy 1left 2bilateral [id number] Social History Social History Type Response Alcohol Never Smoking Status Never smoker; Exposure to Tobacco Smoke None; Cigarette Smoking Last 365 Days No; Reg Smoking Cessation Counseling No Assessment and Plan No data available for this section
--- OUTSIDE RECORDS SUMMARY | 2019-02-04 12:47 | XMS REPORT | Summary of Care ---
Author Author [facility] Organization [facility] Address Unknown Phone Unavailable Encounter HQ Encntr_alias(FIN) [id number] Date(s): 10/07/18 - 10/08/18 [facility] [address] [facility] [address] [place] [address]- [phone] Vital Signs No data available for this section Problem List Condition Effective Dates Status Health Status Informant Acute Active gastroenteritis(Conf irmed) Acute Resolved pyelonephritis(Confi rmed) Asthma(Confirmed) Resolved Atrial Resolved fibrillation(Confirm ed) H/O type A viral Resolved hepatitis(Confirmed) Hypercholesterolemia Active (Confirmed) Hypertension(Confirm Resolved ed) Allergies, Adverse Reactions, Alerts Substance Reaction Severity Status codeine1 Moderate Active NKDA Active Latex2 Moderate Active traMADol3 Moderate Active 1itching 2itching 3Hives , Itching Medications Aldactazide 25 mg-25 mg oral tablet 1 tab, PO, Daily, # 30 tab, 6 Refill(s), Pharmacy: [id number] Start Date: 10/07/18 Status: Ordered Results No data available for this section Immunizations Given and Recorded Vaccine Date Status Refusal Reason influenza virus vaccine, inactivated 03/15/16 Given influenza virus vaccine, inactivated 08/08/08 Given pneumococcal 23-valent vaccine 04/19/07 Given Procedures Procedure Date Related Diagnosis Body Site Status Appendectomy Completed Arthroscopy of knee1 Completed Cardiac catheterization Completed CTR - Carpal tunnel release2 Completed Endoscopy Completed Epidural anesthesia3 Completed Partial hysterectomy Completed Tonsillectomy Completed 1left 2bilateral [id number] Social History Social History Type Response Alcohol Never Smoking Status Never smoker; Exposure to Tobacco Smoke None; Cigarette Smoking Last 365 Days No; Reg Smoking Cessation Counseling No; Other Tobacco Frequency QUIT SMOKING 25 YEARS AGO; entered on: 11/26/17 Assessment and Plan No data available for this section
--- OUTSIDE RECORDS SUMMARY | 2019-02-04 12:47 | XMS REPORT | Summary of Care ---
Author Author [facility] Organization [facility] Address Unknown Phone Unavailable Encounter HQ Encntr_alias(FIN) [id number] Date(s): 10/07/18 - 10/08/18 [facility] [address] [facility] [address] [place] [address]- [phone] Vital Signs No data available for this [...] Active 1itching 2itching 3Hives , Itching Medications No data available for this section [...] Partial hysterectomy Completed Tonsillectomy Completed 1left 2bilateral [id number] Social History Social History Type Response Alcohol Never Smoking Status Never smoker; Exposure to Tobacco Smoke None; Cigarette Smoking Last 365 Days No; Reg Smoking Cessation Counseling No; Other Tobacco Frequency QUIT SMOKING 25 YEARS AGO; entered on: 11/26/17 Assessment and Plan No data available for this section
--- OUTSIDE RECORDS SUMMARY | 2019-02-04 12:47 | XMS REPORT | Summary of Care ---
Author Author [facility] Organization [facility] Address Unknown Phone Unavailable Encounter ASHLI Vaz(JOSE) [id number] Date(s): 01/27/19 - 01/27/19 [facility] [address], [address] [place], [place] [address] Discharge Disposition: Home or Self Care Attending Physician: Johnathan Newman MD Referring Physician: Johnathan Newman MD Vital Signs Most recent to 1 oldest [Reference Range]: Height 154.94 cm (01/27/19 4:10 PM) Temperature Oral 99.1 DegF [96.4-99.1 DegF] (01/27/19 4:10 PM) Blood Pressure 139/88 mmHg [90-140/60-90 mmHg] (01/27/19 4:10 PM) Respiratory Rate 18 BRMIN [14-20 BRMIN] (01/27/19 4:10 PM) Peripheral Pulse 104 bpm Rate [60-100 bpm] *HI* (01/27/19 4:10 PM) Weight 83.807 kg (01/27/19 4:10 PM) Body Mass Index 34.91 m2 (01/27/19 4:10 PM) Problem List Condition Effective Dates Status Health Status Informant Acute Active gastroenteritis(Conf irmed) Acute Resolved pyelonephritis(Confi rmed) Asthma(Confirmed) Resolved Atrial Resolved fibrillation(Confirm ed) H/O type A viral Resolved hepatitis(Confirmed) Hypercholesterolemia Active (Confirmed) Hypertension(Confirm Resolved ed) Allergies, Adverse Reactions, Alerts Substance Reaction Severity Status NKDA Active Latex1 Moderate Active 1itching Medications atorvastatin 40 mg oral tablet 40 mg=1 tab, PO, Bedtime, # 30 tab, 11 Refill(s), Pharmacy: [id number] Start Date: 01/28/19 Stop Date: 01/23/20 Status: Ordered metoprolol 25 mg oral tablet, extended release 25 mg=1 tab, PO, Daily, Take 1 tab daily in combination with 50 mg tab for total dose of 75 mg daily., # 30 tab, 11 Refill(s), Pharmacy: [id number] Start Date: 01/28/19 Stop Date: 01/23/20 Status: Ordered metoprolol 50 mg oral tablet, extended release 50 mg=1 tab, PO, Daily, take one tab daily, in combination with 25 mg tab for to [place] dose 75 mg daily., # 30 tab, 11 Refill(s), Pharmacy: [id number] 4 Start Date: 01/28/19 Stop Date: 01/23/20 Status: Ordered Results No data available for [...] Partial hysterectomy Completed Tonsillectomy Completed 1left 2bilateral [id number] Social History Social History Type Response Alcohol Never Smoking Status Never smoker; Exposure to Tobacco Smoke None; Cigarette Smoking Last 365 Days No; Reg Smoking Cessation Counseling No; Other Tobacco Frequency QUIT SMOKING 25 YEARS AGO; entered on: 01/27/19 Assessment and Plan No data available for this section
--- OUTSIDE RECORDS SUMMARY | 2019-02-04 12:47 | XMS REPORT | Summary of Care ---
Author Author [facility] Organization [facility] Address Unknown Phone Unavailable Encounter HQ Saúlr_marni(FIN) [id number] Date(s): 11/24/16 - 11/25/16 [facility] [address], [address] [place] [address]- Vital Signs No data available for this section Problem List Condition Effective Dates Status Health Status Informant Acute Active gastroenteritis(Conf irmed) Acute Resolved pyelonephritis(Confi rmed) Asthma(Confirmed) Resolved Atrial Resolved fibrillation(Confirm ed) H/O type A viral Resolved hepatitis(Confirmed) Hypercholesterolemia Active (Confirmed) Hypertension(Confirm Resolved ed) Allergies, Adverse Reactions, Alerts Substance Reaction Severity Status NKDA Active Medications metoprolol 25 mg oral tablet, extended release 25 mg=1 tab, PO, BID, # 60 tab, 5 Refill(s), Pharmacy: [id number] Start Date: 11/24/16 Status: Ordered Results No data available for this section Immunizations Given and Recorded Vaccine Date Status Refusal Reason influenza virus vaccine, inactivated 03/15/16 Given influenza virus vaccine, inactivated 08/08/08 Given pneumococcal 23-valent vaccine 04/19/07 Given Procedures Procedure Date Related Diagnosis Body Site Appendectomy Arthroscopy of knee1 Cardiac catheterization CTR - Carpal tunnel release2 Epidural anesthesia3 Partial hysterectomy Tonsillectomy 1left 2bilateral [id number] Social History Social History Type Response Alcohol Never Smoking Status Never smoker; Exposure to Tobacco Smoke None; Cigarette Smoking Last 365 Days No; Reg Smoking Cessation Counseling No Assessment and Plan No data available for this section
--- OUTSIDE RECORDS SUMMARY | 2019-02-04 12:47 | XMS REPORT | Summary of Care ---
Author Author [facility] Organization [facility] Address Unknown Phone Unavailable Encounter ASHLI Vaz(JOSE) [id number] Date(s): 06/12/17 - 06/12/17 [facility] [address], [address] Discharge Disposition: Home or Self Care Attending Physician: Johnathan Newman MD Referring Physician: Johnathan Newman MD Vital Signs Most recent to 1 oldest [Reference Range]: Height 160.78 cm (06/12/17 2:21 PM) Temperature Oral 98.2 DegF [96.4-99.1 DegF] (06/12/17 2:21 PM) Blood Pressure 106/72 mmHg [90-140/60-90 mmHg] (06/12/17 2:21 PM) Respiratory Rate 20 BRMIN [14-20 BRMIN] (06/12/17 2:21 PM) Peripheral Pulse 67 bpm Rate [60-100 bpm] (06/12/17 2:21 PM) Weight 96.818 kg (06/12/17 2:21 PM) Body Mass Index 37.45 m2 (06/12/17 2:21 PM) Problem List Condition Effective Dates Status [...] Daily, # 30 tab, 6 Refill(s), Pharmacy: [id number] Start Date: 06/12/17 Status: Ordered Results No data available for this section Immunizations Given and Recorded Vaccine Date Status Refusal Reason influenza virus vaccine, inactivated 03/15/16 Given influenza virus vaccine, inactivated 08/08/08 Given pneumococcal 23-valent vaccine 04/19/07 Given Procedures Procedure Date Related Diagnosis Body Site Appendectomy Arthroscopy of knee1 Cardiac catheterization CTR - Carpal tunnel release2 Endoscopy Epidural anesthesia3 Partial hysterectomy Tonsillectomy 1left 2bilateral [id number] Social History Social History Type Response Alcohol Never Smoking Status Never smoker; Exposure to Tobacco Smoke None; Cigarette Smoking Last 365 Days No; Reg Smoking Cessation Counseling No; Other Tobacco Frequency QUIT SMOKING 25 YEARS AGO; Assessment and Plan No data available for this section
--- OUTSIDE RECORDS SUMMARY | 2019-02-04 12:47 | XMS REPORT | Summary of Care ---
Author Author [facility] Organization [facility] Address Unknown Phone Unavailable Encounter ASHLI Vaz(JOSE) [id number] Date(s): 03/30/17 - 03/30/17 [facility] [address], [address] Discharge Disposition: Home or Self Care Attending Physician: Johnathan Newman MD Referring Physician: Johnathan Newman MD Vital Signs Most recent to 1 oldest [Reference Range]: Height 157.48 cm (03/30/17 11:47 AM) Temperature Oral 97.6 DegF [96.4-99.1 DegF] (03/30/17 11:47 AM) Blood Pressure 122/80 mmHg [90-140/60-90 mmHg] (03/30/17 11:47 AM) Respiratory Rate 16 BRMIN [14-20 BRMIN] (03/30/17 11:47 AM) Peripheral Pulse 70 bpm Rate [60-100 bpm] (03/30/17 11:47 AM) Weight 85.966 kg (03/30/17 11:47 AM) Body Mass Index 34.66 m2 (03/30/17 11:47 AM) Problem List Condition Effective Dates Status Health Status Informant Acute Active gastroenteritis(Conf irmed) Acute Resolved pyelonephritis(Confi rmed) Asthma(Confirmed) Resolved Atrial Resolved fibrillation(Confirm ed) H/O type A viral Resolved hepatitis(Confirmed) Hypercholesterolemia Active (Confirmed) Hypertension(Confirm Resolved ed) Allergies, Adverse Reactions, Alerts Substance Reaction Severity Status NKDA Active Medications Aldactazide 25 mg-25 mg oral tablet 1 tab, PO, Daily, # 30 tab, 6 Refill(s), Pharmacy: [id number] Start Date: 03/31/17 Status: Ordered aspirin 81 mg tablet, enteric coated 81 mg=1 tab, PO, Daily, *LAST DOSE 03/14/15*, # 120 tab, 5 Refill(s), Pharmacy: [facility] 8244 Start Date: 03/31/17 Status: Ordered atorvastatin 20 mg oral tablet 20 mg=1 tab, PO, Daily, # 30 tab, 6 Refill(s), Pharmacy: [id number] 4 Start Date: 03/31/17 Status: Ordered losartan 50 mg oral tablet 50 mg=1 tab, PO, Daily, # 30 tab, 6 Refill(s), Pharmacy: [id number] 4 Start Date: 03/31/17 Status: Ordered metoprolol 50 mg oral tablet, extended release 50 mg=1 tab, PO, Daily, # 30 tab, 6 Refill(s), Pharmacy: [id number] 4 Start Date: 03/31/17 Status: Ordered metoprolol 50 mg oral tablet, extended release 50 mg=1 tab, PO, Daily, X 30 day, # 30 tab, 2 Refill(s), Pharmacy: [facility] 8244 Start Date: 12/04/16 Stop Date: 03/31/17 Status: Completed Results No data available for this section Immunizations Given and Recorded Vaccine Date Status Refusal Reason influenza virus vaccine, inactivated 03/15/16 Given influenza virus vaccine, inactivated 08/08/08 Given pneumococcal 23-valent vaccine 04/19/07 Given Procedures Procedure Date Related Diagnosis Body Site Appendectomy Arthroscopy of knee1 Cardiac catheterization CTR - Carpal tunnel release2 Epidural anesthesia3 Partial hysterectomy Tonsillectomy 1left 2bilateral [id number] Social History Social History Type Response Alcohol Never Smoking Status Never smoker; Exposure to Tobacco Smoke None; Cigarette Smoking Last 365 Days No; Reg Smoking Cessation Counseling No Assessment and Plan No data available for this section
--- OUTSIDE RECORDS SUMMARY | 2019-02-04 12:47 | XMS REPORT | Summary of Care ---
Author Author [facility] Organization [facility] [place] Address Unknown Phone Unavailable Encounter HQ Leslyentr_marni(FIN) [id number] Date(s): 12/09/18 - 12/09/18 [facility] [place] [facility] [address] [place] [phone] Discharge Disposition: Home or Self Care Attending Physician: Johnathan Newman MD Referring Physician: Johnathan Newman MD Vital Signs No data available for this section Problem List Condition Effective Dates Status Health Status Informant Acute Active gastroenteritis(Conf irmed) Acute Resolved pyelonephritis(Confi rmed) Asthma(Confirmed) Resolved Atrial Resolved fibrillation(Confirm ed) H/O type A viral Resolved hepatitis(Confirmed) Hypercholesterolemia Active (Confirmed) Hypertension(Confirm Resolved ed) Allergies, Adverse Reactions, Alerts Substance Reaction Severity Status NKDA Active Latex1 Moderate Active 1itching Medications No data available for this section [...] Partial hysterectomy Completed Tonsillectomy Completed 1left 2bilateral [id number] Social History Social History Type Response Alcohol Never Smoking Status Never smoker; Exposure to Tobacco Smoke None; Cigarette Smoking Last 365 Days No; Reg Smoking Cessation Counseling No; Other Tobacco Frequency QUIT SMOKING 25 YEARS AGO; entered on: 11/19/18 Assessment and Plan No data available for this section
--- OUTSIDE RECORDS SUMMARY | 2019-02-04 12:47 | XMS REPORT | Summary of Care ---
Author Author [facility] Organization [facility] Address Unknown Phone Unavailable Encounter ASHLI Vaz(JOSE) [id number] Date(s): 08/01/16 - 08/01/16 [facility] [address], [address] [place], [place] [address] Discharge Disposition: Home or Self Care Attending Physician: Johnathan Newman MD Referring Physician: Johnathan Newman MD Vital Signs Most recent to 1 oldest [Reference Range]: Height 157.48 cm (08/01/16 11:30 AM) Temperature Oral 97.9 DegF [96.4-99.1 DegF] (08/01/16 11:30 AM) Blood Pressure 134/88 mmHg [90-140/60-90 mmHg] (08/01/16 11:30 AM) Respiratory Rate 18 BRMIN [14-20 BRMIN] (08/01/16 11:30 AM) Peripheral Pulse 78 bpm Rate [60-100 bpm] (08/01/16 11:30 AM) Weight 82.727 kg (08/01/16 11:30 AM) Body Mass Index 33.36 m2 (08/01/16 11:30 AM) Problem List Condition Effective Dates Status Health Status Informant Acute Active gastroenteritis(Conf irmed) Acute Resolved pyelonephritis(Confi rmed) Asthma(Confirmed) Resolved Atrial Resolved fibrillation(Confirm ed) H/O type A viral Resolved hepatitis(Confirmed) Hypercholesterolemia Active (Confirmed) Hypertension(Confirm Resolved ed) Allergies, Adverse Reactions, Alerts Substance Reaction Severity Status NKDA Active Medications aspirin 81 mg tablet, enteric coated 81 mg=1 tab, PO, Daily, *LAST DOSE 03/14/15*, # 30 tab, 5 Refill(s), Pharmacy: [facility] Start Date: 08/01/16 Status: Ordered atorvastatin 20 mg oral tablet 20 mg=1 tab, PO, Daily, # 30 tab, 5 Refill(s), Pharmacy: [facility] [id number] 4 Start Date: 08/01/16 Status: Ordered hydrochlorothiazide 12.5 mg oral capsule 12.5 mg=1 cap, PO, Daily, # 30 tab, 5 Refill(s), Pharmacy: [facility] [id number] 244 Start Date: 08/01/16 Status: Ordered losartan 50 mg oral tablet 50 mg=1 tab, PO, Daily, # 30 tab, 5 Refill(s), Pharmacy: [facility] [id number] 4 Start Date: 08/01/16 Status: Ordered metoprolol 25 mg oral tablet, extended release See Instructions, 1 tab in the morning and two tabs in the evening., # 90 tab, 5 Refill(s), Pharmacy: [facility] 8244 Start Date: 08/01/16 Status: Ordered spironolactone 50 mg oral tablet 50 mg=1 tab, PO, Daily, # 30 tab, 5 Refill(s), Pharmacy: [facility] [id number] 4 Start Date: 08/01/16 Status: Ordered Results No data available for this section Immunizations Given and Recorded Vaccine Date Status Refusal Reason influenza virus vaccine, inactivated 03/15/16 Given influenza virus vaccine, inactivated 08/08/08 Given pneumococcal 23-valent vaccine 04/19/07 Given Procedures Procedure Date Related Diagnosis Body Site Appendectomy Arthroscopy of knee1 Cardiac catheterization CTR - Carpal tunnel release2 Epidural anesthesia3 Partial hysterectomy Tonsillectomy 1left 2bilateral [id number] Social History Social History Type Response Alcohol Never Smoking Status Never smoker; Exposure to Tobacco Smoke None; Cigarette Smoking Last 365 Days No; Reg Smoking Cessation Counseling No Assessment and Plan No data available for this section
--- OUTSIDE RECORDS SUMMARY | 2019-02-04 12:47 | XMS REPORT | Summary of Care ---
Author Author [facility] Organization [facility] Address Unknown Phone Unavailable Encounter ASHLI Vaz(JOSE) [id number] Date(s): 10/31/16 - 10/31/16 [facility] [address], [address] Discharge Disposition: Home or Self Care Attending Physician: Johnathan Newman MD Referring Physician: Johnathan Newman MD Vital Signs Most recent to 1 oldest [Reference Range]: Height 155.19 cm (10/31/16 9:30 AM) Temperature Oral 97.9 DegF [96.4-99.1 DegF] (10/31/16 9:30 AM) Blood Pressure 147/86 mmHg [90-140/60-90 mmHg] *HI* (10/31/16 9:30 AM) Respiratory Rate 18 BRMIN [14-20 BRMIN] (10/31/16 9:30 AM) Peripheral Pulse 76 bpm Rate [60-100 bpm] (10/31/16 9:30 AM) Weight 84.148 kg (10/31/16 9:30 AM) Body Mass Index 34.94 m2 (10/31/16 9:30 AM) Problem List Condition Effective Dates Status [...] Epidural anesthesia3 Partial hysterectomy Tonsillectomy 1left 2bilateral [id number] Social History Social History Type Response Alcohol Never Smoking Status Never smoker; Exposure to Tobacco Smoke None; Cigarette Smoking Last 365 Days No; Reg Smoking Cessation Counseling No Assessment and Plan No data available for this section
--- OUTSIDE RECORDS SUMMARY | 2019-02-04 12:48 | XMS REPORT ---
Author Author [facility] Address Unknown Phone Unavailable Care Team Providers Care Port Traffic Manager Name Role Phone Unavailable Unavailable Problems This patient has no known problems. Allergies, Adverse Reactions, Alerts This patient has no known allergies or adverse reactions. Medications This patient has no known medications. Encounters Start Date/Time End Date/Time Encounter Type Admission Type Attending [facility] Care Department Encounter ID 2018-10-07 16:12:47 Outpatient [id number] 2019-01-27 15:10:00 2019-01-27 15:10:00 Outpatient [facility] [id number] 2018-11-19 14:58:00 2018-11-19 14:58:00 Outpatient [facility] [id number] 2018-11-16 11:41:00 2018-11-16 11:41:00 Emergency E [facility] [id number]
--- OUTSIDE RECORDS SUMMARY | 2019-02-04 12:48 | XMS REPORT | Summary of Care ---
Author Author [facility] Organization [facility] Address Unknown Phone Unavailable Encounter ASHLI Vaz(JOSE) [id number] Date(s): 11/16/18 - 11/16/18 [facility] [address] [facility] [place] [address]- Encounter Diagnosis Nonspecific chest pain (Discharge Diagnosis) - 11/16/18 Discharge Disposition: Home or Self Care Attending Physician: Rajesh Keating MD Vital Signs 1 2 3 Most recent to oldest [Reference Range]: 157.48 cm (11/16/18 11:42 AM) Height 97.5 DegF (11/16/18 3:08 PM) 97.7 DegF (11/16/18 11:42 AM) Temperature Oral [96.4-99.1 DegF] 128/69 mmHg (11/16/18 3:08 PM) 138/74 mmHg (11/16/18 1:10 PM) 138/75 mmHg (11/16/18 12:29 PM) Blood Pressure [90-140/60-90 mmHg] 18 BRMIN (11/16/18 3:08 PM) 16 BRMIN (11/16/18 1:10 PM) 18 BRMIN (11/16/18 12:29 PM) Respiratory Rate [14-20 BRMIN] 77 bpm (11/16/18 12:29 PM) 87 bpm (11/16/18 11:42 AM) Peripheral Pulse Rate [60-100 bpm] 81.364 kg (11/16/18 11:42 AM) Weight 32.81 m2 (11/16/18 11:42 AM) Body Mass Index Problem List Condition Effective Dates Status Health Status Informant Acute Active gastroenteritis(Conf irmed) Acute Resolved pyelonephritis(Confi rmed) Asthma(Confirmed) Resolved Atrial Resolved fibrillation(Confirm ed) H/O type A viral Resolved hepatitis(Confirmed) Hypercholesterolemia Active (Confirmed) Hypertension(Confirm Resolved ed) Allergies, Adverse Reactions, Alerts Substance Reaction Severity Status NKDA Active Latex1 Moderate Active 1itching Medications No Known Medications Results Most recent to 1 2 oldest [Reference Range]: [facility] HIV 4th GEN Negative [Negative] *NA* (11/16/18 2:22 PM) Neutrophils # 3.7 K/CMM [1.5-8.1 K/CMM] (11/16/18 12:06 PM) Lymphocytes # 2.5 K/CMM [1.0-5.5 K/CMM] (11/16/18 12:06 PM) Monocytes # [0.0-0.8 0.5 K/CMM K/CMM] (11/16/18 12:06 PM) Eosinophils # 0.1 K/CMM [0.0-0.5 K/CMM] (11/16/18 12:06 PM) Basophils # [0.0-0.2 0.1 K/CMM K/CMM] (11/16/18 12:06 PM) Plt Morph [Normal] Normal (11/16/18 12:06 PM) eGFR 97 mL/min/1.73m2 1 *NA* (11/16/18 12:06 PM) AGAP [10.0-20.0 14.5 mEq/L mEq/L] (11/16/18 12:06 PM) Basophils [0.0-1.0 0.8 % %] (11/16/18 12:06 PM) BUN [7-22 mg/dL] 16 mg/dL (11/16/18 12:06 PM) Calcium Lvl 9.1 mg/dL [8.5-10.5 mg/dL] (11/16/18 12:06 PM) Chloride Lvl [95-109 104 mEq/L mEq/L] (11/16/18 12:06 PM) CO2 [24-32 mEq/L] 24 mEq/L (11/16/18 12:06 PM) Creatinine Lvl 0.65 mg/dL [0.50-1.40 mg/dL] (11/16/18 12:06 PM) Eosinophils [0.0-4.0 1.5 % %] (11/16/18 12:06 PM) Glucose Lvl [70-99 108 mg/dL mg/dL] *HI* (11/16/18: PM) Hct [36.0-48.0 %] 41.0 % (11/16/18: PM) Hgb [12.0-16.0 g/dL] 14.1 g/dL (11/16/18: PM) Potassium Lvl 3.5 mEq/L [3.5-5.1 mEq/L] (11/16/18: PM) Lymphocytes 36.3 % [20.0-40.0 %] (11/16/18: PM) MCH [27.0-31.0 pg] 27.9 pg (11/16/18 PM) MCHC [32.0-36.0 34.4 g/dL g/dL] (11/16/18: PM) MCV [80.0-98.0 fL] 80.9 fL (11/16/18 PM) Monocytes [2.0-12.0 7.2 % %] (11/16/18: PM) MPV [7.4-10.4 fL] 9.7 fL (11/16/18: PM) Sodium Lvl [135-145 139 mEq/L mEq/L] (11/16/18: PM) Platelet [133-450 187 K/CMM K/CMM] (11/16/18: PM) Segs [45.0-75.0 %] 54.2 % (11/16/18: PM) RBC [4.20-5.40 5.07 M/CMM M/CMM] (11/16/18: PM) RBC Morph [Normal] Normal (11/16/18: PM) RDW [11.5-14.5 %] 14.2 % (11/16/18: PM) Troponin-I <0.02 ng/mL <0.02 ng/mL [0.00-0.40 ng/mL] (11/16/18 2:01 PM) (11/16/18 12:06 PM) WBC [3.7-10.4 K/CMM] 6.9 K/CMM (11/16/18 12:06 PM) 1Result Comment: The eGFR is calculated using [...] be mul tiplied by the estimated BMI. Immunizations Given and Recorded Vaccine Date Status Refusal Reason influenza virus vaccine, inactivated 03/15/16 Given influenza virus vaccine, inactivated 08/08/08 Given pneumococcal 23-valent vaccine 04/19/07 Given Procedures Procedure Date Related Diagnosis Body Site Status Appendectomy Completed Arthroscopy of knee1 Completed Cardiac catheterization Completed CTR - Carpal tunnel release2 Completed Endoscopy Completed Epidural anesthesia3 Completed Partial hysterectomy Completed Tonsillectomy Completed 1left 2bilateral [id number] Social History Social History Type Response Alcohol Never Smoking Status Never smoker; Exposure to Tobacco Smoke None; Cigarette Smoking Last 365 Days No; Reg Smoking Cessation Counseling No entered on: 11/16/18 Assessment and Plan No data available for this section
--- OUTSIDE RECORDS SUMMARY | 2019-02-04 12:48 | XMS REPORT | Summary of Care ---
Author Author [facility] Organization [facility] Address Unknown Phone Unavailable Encounter ASHLI Vaz(JOSE) [id number] Date(s): 11/26/17 - 11/26/17 [facility] [address] [facility], [address] Discharge Disposition: Home or Self Care Attending Physician: Johnathan Newman MD Referring Physician: Johnathan Newman MD Vital Signs Most recent to 1 oldest [Reference Range]: Height 160.53 cm (11/26/17 9:08 AM) Temperature Oral 98.0 DegF [96.4-99.1 DegF] (11/26/17 9:08 AM) Blood Pressure 147/85 mmHg [90-140/60-90 mmHg] *HI* (11/26/17 9:08 AM) Respiratory Rate 16 BRMIN [14-20 BRMIN] (11/26/17 9:08 AM) Peripheral Pulse 102 bpm Rate [60-100 bpm] *HI* (11/26/17 9:08 AM) Weight 84.602 kg (11/26/17 9:08 AM) Body Mass Index 32.83 m2 (11/26/17 9:08 AM) Problem List Condition Effective Dates [...] Daily, # 30 tab, 6 Refill(s), Pharmacy: [id number] Start Date: 11/26/17 Status: Ordered atorvastatin 20 mg oral tablet 20 mg=1 tab, PO, Daily, # 30 tab, 6 Refill(s), Pharmacy: [id number] 4 Start Date: 11/26/17 Status: Ordered losartan 50 mg oral tablet 50 mg=1 tab, PO, Daily, # 30 tab, 6 Refill(s), Pharmacy: [id number] 4 Start Date: 11/26/17 Status: Ordered metoprolol 50 mg oral tablet, extended release 50 mg=1 tab, PO, Daily, # 30 tab, 6 Refill(s), Pharmacy: [id number] 4 Start Date: 11/26/17 Status: Ordered Results No data available for [...] Partial hysterectomy Completed Tonsillectomy Completed 1left 2bilateral [id number] Social History Social History Type Response Alcohol Never Smoking Status Never smoker; Exposure to Tobacco Smoke None; Cigarette Smoking Last 365 Days No; Reg Smoking Cessation Counseling No; Other Tobacco Frequency QUIT SMOKING 25 YEARS AGO; entered on: 11/26/17 Assessment and Plan No data available for this section
--- OUTSIDE RECORDS SUMMARY | 2019-02-04 12:48 | XMS REPORT | Summary of Care ---
Author Author [facility] Organization [facility] Address Unknown Phone Unavailable Encounter ASHLI Vaz(JOSE) [id number] Date(s): 11/19/18 - 11/19/18 [facility] [address], [address] Discharge Disposition: Home or Self Care Attending Physician: Johnathan Newman MD Referring Physician: Johnathan Newman MD Vital Signs Most recent to 1 oldest [Reference Range]: Height 154.94 cm (11/19/18 3:19 PM) Temperature Oral 98.4 DegF [96.4-99.1 DegF] (11/19/18 3:19 PM) Blood Pressure 127/77 mmHg [90-140/60-90 mmHg] (11/19/18 3:19 PM) Respiratory Rate 18 BRMIN [14-20 BRMIN] (11/19/18 3:19 PM) Peripheral Pulse 75 bpm Rate [60-100 bpm] (11/19/18 3:19 PM) Weight 84.631 kg (11/19/18 3:19 PM) Body Mass Index 35.25 m2 (11/19/18 3:19 PM) Problem List Condition Effective Dates Status Health Status Informant Acute Active gastroenteritis(Conf irmed) Acute Resolved pyelonephritis(Confi rmed) Asthma(Confirmed) Resolved Atrial Resolved fibrillation(Confirm ed) H/O type A viral Resolved hepatitis(Confirmed) Hypercholesterolemia Active (Confirmed) Hypertension(Confirm Resolved ed) Allergies, Adverse Reactions, Alerts Substance Reaction Severity Status NKDA Active Latex1 Moderate Active 1itching Medications Aldactazide 25 mg-25 mg oral tablet 1 tab, PO, Daily, # 30 tab, 11 Refill(s), Pharmacy: [id number] Start Date: 11/19/18 Stop Date: 11/14/19 Status: Ordered aspirin 81 mg tablet, enteric coated 81 mg=1 tab, PO, Daily, # 30 tab, 11 Refill(s), Pharmacy: [id number] Start Date: 11/19/18 Stop Date: 11/14/19 Status: Ordered Lipitor 20 mg oral tablet 20 mg=1 tab, PO, Daily, # 30 tab, 11 Refill(s), Pharmacy: [id number] Start Date: 11/19/18 Stop Date: 11/14/19 Status: Ordered losartan 50 mg oral tablet 50 mg=1 tab, PO, Daily, # 30 tab, 11 Refill(s), Pharmacy: [id number] Start Date: 11/19/18 Stop Date: 11/14/19 Status: Ordered metoprolol 50 mg oral tablet, extended release 50 mg=1 tab, PO, Daily, # 30 tab, 11 Refill(s), Pharmacy: [id number] Start Date: 11/19/18 Stop Date: 11/14/19 Status: Ordered Results Most recent to 1 oldest [Reference Range]: Neutrophils # 4.6 K/CMM [1.5-8.1 K/CMM] (11/19/18 5:10 PM) Lymphocytes # 3.6 K/CMM [1.0-5.5 K/CMM] (11/19/18 5:10 PM) Monocytes # [0.0-0.8 0.6 K/CMM K/CMM] (11/19/18 5:10 PM) Eosinophils # 0.2 K/CMM [0.0-0.5 K/CMM] (11/19/18 5:10 PM) Basophils # [0.0-0.2 0.1 K/CMM K/CMM] (11/19/18 5:10 PM) eGFR 93 mL/min/1.73m2 1 *NA* (11/19/18 5:10 PM) A/G Ratio [0.7-1.6] 1.0 (11/19/18 5:10 PM) Albumin Lvl [3.5-5.0 4.0 g/dL g/dL] (11/19/18 5:10 PM) Alk Phos [39-136 115 unit/L unit/L] (11/19/18 5:10 PM) ALT [0-65 unit/L] 32 unit/L (11/19/18 5:10 PM) AGAP [10.0-20.0 10.9 mEq/L mEq/L] (11/19/18 5:10 PM) AST [0-37 unit/L] 14 unit/L (11/19/18 5:10 PM) B/C Ratio [6-25] 14 (11/19/18 5:10 PM) Basophils [0.0-1.0 0.6 % %] (11/19/18 5:10 PM) BUN [7-22 mg/dL] 10 mg/dL (11/19/18 5:10 PM) Calcium Lvl 8.9 mg/dL [8.5-10.5 mg/dL] (11/19/18 5:10 PM) CHD Risk [3.90-5.80] 4.33 (11/19/18 5:10 PM) Chol [<=199 mg/dL] 186 mg/dL (11/19/18 5:10 PM) Chloride Lvl [95-109 105 mEq/L mEq/L] (11/19/18 5:10 PM) CO2 [24-32 mEq/L] 28 mEq/L (11/19/18 5:10 PM) Creatinine Lvl 0.71 mg/dL [0.50-1.40 mg/dL] (11/19/18 5:10 PM) Eosinophils [0.0-4.0 2.2 % %] (11/19/18 5:10 PM) Globulin [2.7-4.2 3.9 g/dL g/dL] (11/19/18 5:10 PM) Glucose Lvl [70-99 89 mg/dL mg/dL] (11/19/18 5:10 PM) Hct [36.0-48.0 %] 39.5 % (11/19/18 5:10 PM) HDL [>=61 mg/dL] 43 mg/dL *LOW* (11/19/18 5:10 PM) Hgb [12.0-16.0 g/dL] 12.9 g/dL (11/19/18 5:10 PM) Hgb A1C [<=5.6 %] 5.8 % *HI* (11/19/18 5:10 PM) Potassium Lvl 3.9 mEq/L [3.5-5.1 mEq/L] (11/19/18 5:10 PM) LDL (Calculated) 124 mg/dL [<=99 mg/dL] *HI* (11/19/18 5:10 PM) Lymphocytes 39.5 % [20.0-40.0 %] (11/19/18 5:10 PM) MCH [27.0-31.0 pg] 27.1 pg (11/19/18 5:10 PM) MCHC [32.0-36.0 32.7 g/dL g/dL] (11/19/18 5:10 PM) MCV [80.0-98.0 fL] 83.1 fL (11/19/18 5:10 PM) Monocytes [2.0-12.0 6.9 % %] (11/19/18 5:10 PM) MPV [7.4-10.4 fL] 9.9 fL (11/19/18 5:10 PM) Sodium Lvl [135-145 140 mEq/L mEq/L] (11/19/18 5:10 PM) Platelet [133-450 212 K/CMM K/CMM] (11/19/18 5:10 PM) Segs [45.0-75.0 %] 50.8 % (11/19/18 5:10 PM) Total Protein 7.9 g/dL [6.4-8.4 g/dL] (11/19/18 5:10 PM) RBC [4.20-5.40 4.75 M/CMM M/CMM] (11/19/18 5:10 PM) RDW [11.5-14.5 %] 14.3 % (11/19/18 5:10 PM) Bili Total [0.2-1.3 0.6 mg/dL mg/dL] (11/19/18 5:10 PM) Trig [<=149 mg/dL] 96 mg/dL (11/19/18 5:10 PM) WBC [3.7-10.4 K/CMM] 9.1 K/CMM (11/19/18 5:10 PM) VLDL 19 *NA* (11/19/18 5:10 PM) 1Result Comment: The eGFR is calculated [...] Partial hysterectomy Completed Tonsillectomy Completed 1left 2bilateral [id number] Social History Social History Type Response Alcohol Never Smoking Status Never smoker; Exposure to Tobacco Smoke None; Cigarette Smoking Last 365 Days No; Reg Smoking Cessation Counseling No; Other Tobacco Frequency QUIT SMOKING 25 YEARS AGO; entered on: 11/19/18 Assessment and Plan No data available for this section
--- OUTSIDE RECORDS SUMMARY | 2019-02-04 12:48 | XMS REPORT | Summary of Care ---
Author Author [facility] Organization [facility] Address Unknown Phone Unavailable Encounter HQ Milind(FIN) [id number] Date(s): 06/12/17 - 06/13/17 [facility] [address], [address] Vital Signs No data available for this [...] Epidural anesthesia3 Partial hysterectomy Tonsillectomy 1left 2bilateral [id number] Social History Social History Type Response Alcohol Never Smoking Status Never smoker; Exposure to Tobacco Smoke None; Cigarette Smoking Last 365 Days No; Reg Smoking Cessation Counseling No; Other Tobacco Frequency QUIT SMOKING 25 YEARS AGO; Assessment and Plan No data available for this section
[2019-02-04 13:18] VITALS: BP 198/84
[2019-02-04 13:32] VITALS: BP 198/84
[2019-02-04] MEDS ORDERED: ALBUTEROL0.63 MG/3 IH (13:59)
[2019-02-04] MEDS ORDERED: ASPIR 8181 MG PO (13:59)
[2019-02-04] MEDS ORDERED: SPIRONOLACTONE25 MG PO (13:59)
[2019-02-04] MEDS ORDERED: LOSARTAN POTASS25 MG PO (13:59)
[2019-02-04] MEDS ORDERED: ACETAMINOPHEN 325 MG TAB PO PRN (14:00)
[2019-02-04] MEDS ORDERED: CEFTRIAXONE SOD 1 GM/NS 50 ML 50 ML IV SCH (14:00)
[2019-02-04] MEDS ORDERED: ALBUTEROL/IPRATROPIUM 3 ML NEB NEB PRN (14:15)
[2019-02-04] MEDS: ALBUTEROL/IPRATROPIUM 3 ML NEB NEB SCH ×3 (14:30→23:15)
[2019-02-04] MEDS ORDERED: SODIUM CHLORIDE 0.9% 250ML 250 ML ONE (14:36)
[2019-02-04 15:07] VITALS: BP 198/84
[2019-02-04 15:13] VITALS: BP 163/75
[2019-02-04 15:35] VITALS: BP 163/75
[2019-02-04] MEDS: AZITHROMYCIN 500MG/NS 250 ML 250 ML IV SCH (15:39)
--- NOTE | 2019-02-04 15:50 | NUR ---
Visit made by the Spiritual Care Department Pastoral Visitor, Keila Guillory. PV provided pastoral presence, prayer, hospitality, and supportive listening. Pastoral Visitor informed pt/family of the scope of [employer] Services and availability. ELIAZAR ORLANDO Raiser Helper Spiritual Care Department O: [phone] Pager: [phone] ([phone] number calling from)
[2019-02-04 15:51] LABS: BASOPHILS # (AUTO) 0.1 (0.0-0.1); BASOPHILS % 0.7 % (0.0-1.0); EOSINOPHILS # (AUTO) 0.2 (0.0-0.4); EOSINOPHILS % 2.6 % (0.0-6.0); HEMATOCRIT 37.9 % (34.2-44.1); HEMOGLOBIN 12.7 g/dL (12.0-16.0); LYMPHOCYTES # (AUTO) 2.9 (1.0-3.2); LYMPHOCYTES % 37.9 % (18.0-39.1); MEAN CORPUSCULAR HEMOGLOBIN 27.2 pg (28-32); MEAN CORPUSCULAR HGB CONC 33.5 g/dL (31-35); MEAN CORPUSCULAR VOLUME 81.2 fL (81-99); MONOCYTES # (AUTO) 0.5 (0.2-0.8); MONOCYTES % 6.5 % (4.4-11.3); PLATELET COUNT 240 x10e3/uL (140-360); RED BLOOD COUNT 4.67 x10e6/uL (3.6-5.1); RED CELL DISTRIBUTION WIDTH 14.2 % (11.7-14.4)
[2019-02-04] MEDS: SPIRONOLACTONE 25 MG TAB PO SCH (16:00)
[2019-02-04 16:07] LABS: ANION GAP 13.3 mmol/L (8-16); BLOOD UREA NITROGEN 12 mg/dL (7-26); BUN/CREATININE RATIO 16 (6-25); CALCIUM 9.2 mg/dL (8.4-10.2); CARBON DIOXIDE 24 mmol/L (22-29); CHLORIDE 103 mmol/L (98-107); CREATININE, SERUM 0.73 mg/dL (0.57-1.11); EST GLOMERULAR FILTRATION RATE > 60 ML/MIN (60-); GLUCOSE 95 mg/dL (74-118); POTASSIUM 3.3 mmol/L (3.5-5.1); SODIUM 137 mmol/L (136-145)
[2019-02-04] MEDS ORDERED: METOPROLOL TARTRATE 25 MG TAB PO NR (16:30)
[2019-02-04] MEDS: LOSARTAN POTASSIUM 25 MG TAB PO SCH (16:30)
[2019-02-04] MEDS ORDERED: POTASSIUM CHLORIDE 20 MEQ TAB CR PO NR (16:45)
[2019-02-04] MEDS ORDERED: METOPROLOL SUCC50 MG PO (16:55)
[2019-02-04] MEDS: GUAIFENESIN 600MG/DEXTROMETHORPHAN 30MG TABSR PO SCH ×2 (17:18→23:36)
--- NOTE | 2019-02-04 17:26 | Diagnostic Imaging Report ---
EXAM: CHEST 2 VIEWS DATE: 02/04/2019 1:46 PM INDICATION: Pneumonia COMPARISON: None FINDINGS: The trachea is midline. The lungs are symmetrically expanded without evidence for focal consolidation, pneumothorax, or significant pleural effusion. The cardiomediastinal silhouette the pulmonary vasculature are within normal limits. No acute osseous abnormalities identified. The soft tissues are unremarkable. IMPRESSION: No acute cardiopulmonary process identified. Signed by: Dr. Jose [facility] MD on 02/04/2019 5:22 PM
[2019-02-04] MEDS ORDERED: PROVENTIL HFA6.7 GM (17:30)
[2019-02-04] MEDS ORDERED: SYMBICORT 16010.2 GM (17:30)
[2019-02-04] MEDS ORDERED: GUAIFENESIN 600 MG TAB PO SCH (18:00)
--- NOTE | 2019-02-04 19:10 | NUR ---
Patient visited in room during nursing rounds. Patient alert and oriented x3. No distress or discomfort noted. Pt with occasional productive cough. Pt states phlegm yellowish to greenish in color. Pt on scheduled IV antibiotics and breathing treatments. 98% on room air. Call connor within reach.
--- NOTE | 2019-02-04 19:24 | Diagnostic Imaging Report ---
EXAM: CT Chest WITH contrast 02/04/2019 6:24 PM INDICATION: Pneumonia. Cough. Shortness of breath COMPARISON: Radiographs 02/04/2019 TECHNIQUE: Chest was scanned utilizing a multidetector helical scanner from the lung apex through the level of the adrenal glands without administration of IV contrast. Coronal and sagittal reformations were obtained. Routine protocol was performed. IV CONTRAST: 100 mL of Isovue-370 RADIATION DOSE: Total DLP: 526 mGy*cm Estimated effective dose: (DLP x 0.014 x size factor) mSv Dose modulation, iterative reconstruction and weight based adjustment of the MA/KV was utilized to reduce the patient dose to as low as reasonably achievable COMPLICATIONS: None FINDINGS: LINES/ TUBES: None. LUNGS AND AIRWAYS: Scattered groundglass density in the left upper lobe best seen on axial image 41 worrisome for early pneumonia. No focal consolidation Airways are normal. PLEURA: The pleural spaces are clear. HEART AND MEDIASTINUM: The thyroid gland is normal. No mediastinal, hilar or axillary lymphadenopathy. The heart is normal in size.. There is no pericardial effusion. UPPER ABDOMEN: Limited non-contrast views of the upper abdomen show no abnormality within the visualized liver, spleen, pancreas, or kidneys. The adrenal glands are normal. BONES: The visualized bony thorax is within normal limits. SOFT TISSUES: Unremarkable. IMPRESSION: Scattered groundglass density in the left upper lobe best seen on axial image 41 worrisome for early pneumonia. No focal consolidation Signed by: Dr. Shabbir Martinez M.D. on 02/04/2019 7:20 PM
[2019-02-04 20:26] VITALS: BP 110/60
[2019-02-04] MEDS ORDERED: IOPAMIDOL 370 MG/ML 200 ML INFUS..BTL INJ ONE (21:00)
[2019-02-04] MEDS ORDERED: SODIUM CHLORIDE 0.9% 50ML 50 ML ONE (21:00)
[2019-02-04] MEDS: METOPROLOL SUCCINATE 50 MG TAB XL PO SCH (21:27)
[2019-02-04] MEDS: CEFTRIAXONE SOD 1 GM/NS 50 ML 50 ML IV SCH (21:30)
[2019-02-05] VITALS (9 sets, daily range): BP systolic 109–139; BP diastolic 55–69
[2019-02-05] MEDS: ALBUTEROL/IPRATROPIUM 3 ML NEB NEB SCH ×5 (03:00→19:37)
[2019-02-05 03:19] LABS: BASOPHILS # (AUTO) 0.1 (0.0-0.1); BASOPHILS % 0.7 % (0.0-1.0); EOSINOPHILS # (AUTO) 0.2 (0.0-0.4); EOSINOPHILS % 3.2 % (0.0-6.0); HEMATOCRIT 36.3 % (34.2-44.1); HEMOGLOBIN 12.1 g/dL (12.0-16.0); LYMPHOCYTES % 43.9 % (18.0-39.1); MEAN CORPUSCULAR HEMOGLOBIN 27.3 pg (28-32); MEAN CORPUSCULAR HGB CONC 33.3 g/dL (31-35); MEAN CORPUSCULAR VOLUME 81.9 fL (81-99); MONOCYTES # (AUTO) 0.4 (0.2-0.8); MONOCYTES % 6.5 % (4.4-11.3); NEUTROPHILS # (AUTO) 3.1 (2.1-6.9); NEUTROPHILS % 45.3 % (38.7-80.0); PLATELET COUNT 221 x10e3/uL (140-360); RED BLOOD COUNT 4.43 x10e6/uL (3.6-5.1); RED CELL DISTRIBUTION WIDTH 14.3 % (11.7-14.4)
[2019-02-05 03:44] LABS: ANION GAP 12.9 mmol/L (8-16); BLOOD UREA NITROGEN 13 mg/dL (7-26); BUN/CREATININE RATIO 18 (6-25); CALCIUM 8.9 mg/dL (8.4-10.2); CARBON DIOXIDE 24 mmol/L (22-29); CHLORIDE 106 mmol/L (98-107); CREATININE, SERUM 0.72 mg/dL (0.57-1.11); EST GLOMERULAR FILTRATION RATE > 60 ML/MIN (60-); GLUCOSE 116 mg/dL (74-118); POTASSIUM 3.9 mmol/L (3.5-5.1); SODIUM 139 mmol/L (136-145)
[2019-02-05] MEDS: GUAIFENESIN 600MG/DEXTROMETHORPHAN 30MG TABSR PO SCH ×4 (06:20→23:22)
[2019-02-05] MEDS: LOSARTAN POTASSIUM 25 MG TAB PO SCH (06:29)
--- NOTE | 2019-02-05 06:55 | NUR ---
rounded with night cleaner nurse, patient aware of change and in no distress. call connor within reach and bed in lowest position.
[2019-02-05] MEDS: ASPIRIN 81 MG CHEW TAB PO SCH (08:15)
[2019-02-05] MEDS: BENZONATATE 100 MG CAP PO PRN ×2 (08:15→17:35)
[2019-02-05] MEDS: CEFTRIAXONE SOD 1 GM/NS 50 ML 50 ML IV SCH ×2 (08:15→20:26)
[2019-02-05] MEDS ORDERED: HYDRALAZINE HCL 20 MG/ML VIAL IV PRN (08:30)
[2019-02-05] MEDS ORDERED: ACETAMINOPHEN 325 MG TAB PO PRN (08:30)
[2019-02-05] MEDS ORDERED: ONDANSETRON HCL INJ 2MG/ML 2ML 2 MG/ML VIAL IV PRN (08:30)
[2019-02-05] MEDS ORDERED: HYDROCODONE/APAP 5MG-325MG TAB PO PRN (08:30)
[2019-02-05] MEDS ORDERED: MELATONIN 5 MG TABLET PO PRN (08:30)
[2019-02-05] MEDS: METHYLPREDNISOLONE SOD SUCC 40 MG/ML VIAL 1ML IV SCH ×2 (09:00→20:26)
[2019-02-05] MEDS: SPIRONOLACTONE 25 MG TAB PO SCH (11:36)
--- NOTE | 2019-02-05 15:27 | NUR ---
Nutrition Screen Note RD Recommendation for Physician: -Continue diet as ordered Plan of Care: RD following, monitoring for tolerance and adequacy Nutrition reason for involvement: Nutrition Risk Trigger- MST Primary Diagnose(s): PNA PMH: asthma Ht: 62in Wt: 181lb BMI: 33.1kg/m2 IBW: 110lb +/- 10% RD Assessment: (02/05) Chart reviewed. Labs and meds reviewed. 58yo F, who was admitted for PNA. Visited pt in the room. 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 She ate 75% of her lunch today and stated that her appetite is coming back. No complains of nausea or vomiting. Pt denied any chewing or swallowing difficulty. LBM 02/05. Weight has been stable between 160-180lbs. Current diet is appropriate and adequate. Current Diet: regular diet Malnutrition Evaluation (02/05/2019) The patient does not meet criteria for a specified degree of malnutrition at this time. Will re-evaluate at follow-up as appropriate. Diet Education Needs Assessment: Diet education not indicated. Nutrition Care Level: low Signed: Mayela Martinez, MS, RD, LD
[2019-02-05] MEDS: AZITHROMYCIN 500MG/NS 250 ML 250 ML IV SCH (16:00)
--- NOTE | 2019-02-05 18:49 | NUR ---
rounded with shift supervisor film processing nurse, patient aware of change and in no distress with family at bedside. call connor within reach and bed in lowest position.
[2019-02-05] MEDS: METOPROLOL SUCCINATE 50 MG TAB XL PO SCH (20:27)
[2019-02-06] VITALS (9 sets, daily range): BP systolic 95–128; BP diastolic 48–67
[2019-02-06] MEDS: ALBUTEROL/IPRATROPIUM 3 ML NEB NEB SCH ×7 (00:21→23:05)
[2019-02-06 02:46] LABS: BASOPHILS % 0.2 % (0.0-1.0); HEMATOCRIT 36.9 % (34.2-44.1); HEMOGLOBIN 12.1 g/dL (12.0-16.0); LYMPHOCYTES # (AUTO) 1.2 (1.0-3.2); MEAN CORPUSCULAR HEMOGLOBIN 27.1 pg (28-32); MEAN CORPUSCULAR HGB CONC 32.8 g/dL (31-35); MEAN CORPUSCULAR VOLUME 82.6 fL (81-99); MONOCYTES # (AUTO) 0.1 (0.2-0.8); MONOCYTES % 0.5 % (4.4-11.3); NEUTROPHILS % 89.8 % (38.7-80.0); PLATELET COUNT 240 x10e3/uL (140-360); RED BLOOD COUNT 4.47 x10e6/uL (3.6-5.1); RED CELL DISTRIBUTION WIDTH 14.5 % (11.7-14.4)
[2019-02-06 02:58] LABS: ANION GAP 12.6 mmol/L (8-16); BLOOD UREA NITROGEN 14 mg/dL (7-26); BUN/CREATININE RATIO 20 (6-25); CARBON DIOXIDE 21 mmol/L (22-29); CHLORIDE 109 mmol/L (98-107); EST GLOMERULAR FILTRATION RATE > 60 ML/MIN (60-); GLUCOSE 162 mg/dL (74-118); POTASSIUM 4.6 mmol/L (3.5-5.1); SODIUM 138 mmol/L (136-145)
[2019-02-06 03:20] LABS: FREE T4 (FREE THYROXINE) 0.98 ng/dL (0.8-1.8); THYROID STIMULATING HORMONE 0.373 uIU/mL (0.350-4.940)
[2019-02-06] MEDS: GUAIFENESIN 600MG/DEXTROMETHORPHAN 30MG TABSR PO SCH ×3 (05:30→17:40)
[2019-02-06] MEDS ORDERED: ONDANSETRON HCL 4 MG ORAL DISINTEGRATING TAB PO PRN (06:45)
[2019-02-06] MEDS: LOSARTAN POTASSIUM 25 MG TAB PO SCH (08:00)
[2019-02-06] MEDS: METHYLPREDNISOLONE SOD SUCC 40 MG/ML VIAL 1ML IV SCH ×2 (08:00→21:40)
[2019-02-06] MEDS: ASPIRIN 81 MG CHEW TAB PO SCH (08:00)
[2019-02-06] MEDS: BENZONATATE 100 MG CAP PO PRN ×2 (08:00→17:40)
[2019-02-06] MEDS: CEFTRIAXONE SOD 1 GM/NS 50 ML 50 ML IV SCH ×2 (08:00→21:40)
[2019-02-06] MEDS ORDERED: SODIUM CHLORIDE 0.9% 250ML 250 ML ONE (08:04)
[2019-02-06] MEDS: SPIRONOLACTONE 25 MG TAB PO SCH (12:05)
[2019-02-06] MEDS: AZITHROMYCIN 500MG/NS 250 ML 250 ML IV SCH (16:00)
--- NOTE | 2019-02-06 19:13 | NUR ---
Bedside report and walking rounds with day shift RN complete. Pt resting in bed and in no apparent distress. All safety measures ensured and pt call connor near.
[2019-02-06] MEDS: METOPROLOL SUCCINATE 50 MG TAB XL PO SCH (21:40)
[2019-02-07] VITALS (7 sets, daily range): BP systolic 100–142; BP diastolic 53–69
[2019-02-07] MEDS: GUAIFENESIN 600MG/DEXTROMETHORPHAN 30MG TABSR PO SCH ×5 (00:24→23:56)
[2019-02-07] MEDS: ALBUTEROL/IPRATROPIUM 3 ML NEB NEB SCH ×6 (03:00→23:10)
[2019-02-07 04:00] LABS: BASOPHILS % 0.2 % (0.0-1.0); HEMATOCRIT 38.2 % (34.2-44.1); HEMOGLOBIN 12.2 g/dL (12.0-16.0); LYMPHOCYTES # (AUTO) 1.1 (1.0-3.2); LYMPHOCYTES % 9.9 % (18.0-39.1); MEAN CORPUSCULAR HEMOGLOBIN 26.6 pg (28-32); MEAN CORPUSCULAR HGB CONC 31.9 g/dL (31-35); MEAN CORPUSCULAR VOLUME 83.4 fL (81-99); MONOCYTES # (AUTO) 0.2 (0.2-0.8); MONOCYTES % 1.3 % (4.4-11.3); NEUTROPHILS # (AUTO) 10.2 (2.1-6.9); NEUTROPHILS % 88.2 % (38.7-80.0); PLATELET COUNT 239 x10e3/uL (140-360); RED BLOOD COUNT 4.58 x10e6/uL (3.6-5.1); RED CELL DISTRIBUTION WIDTH 14.7 % (11.7-14.4)
[2019-02-07 04:20] LABS: ANION GAP 14.7 mmol/L (8-16); BLOOD UREA NITROGEN 16 mg/dL (7-26); BUN/CREATININE RATIO 23 (6-25); CALCIUM 8.9 mg/dL (8.4-10.2); CARBON DIOXIDE 22 mmol/L (22-29); CHLORIDE 107 mmol/L (98-107); EST GLOMERULAR FILTRATION RATE > 60 ML/MIN (60-); GLUCOSE 152 mg/dL (74-118); POTASSIUM 4.7 mmol/L (3.5-5.1); SODIUM 139 mmol/L (136-145)
--- NOTE | 2019-02-07 07:27 | NUR ---
Bedside report and walking rounds complete with day shift RN.
[2019-02-07] MEDS: LOSARTAN POTASSIUM 25 MG TAB PO SCH (08:43)
[2019-02-07] MEDS: CEFTRIAXONE SOD 1 GM/NS 50 ML 50 ML IV SCH ×2 (08:46→21:44)
[2019-02-07] MEDS: ASPIRIN 81 MG CHEW TAB PO SCH (08:46)
[2019-02-07] MEDS: METHYLPREDNISOLONE SOD SUCC 40 MG/ML VIAL 1ML IV SCH ×2 (08:46→21:44)
[2019-02-07] MEDS: SPIRONOLACTONE 25 MG TAB PO SCH (11:48)
[2019-02-07] MEDS: AZITHROMYCIN 500MG/NS 250 ML 250 ML IV SCH (16:09)
--- NOTE | 2019-02-07 19:15 | NUR ---
Received report from previous nurse. Call light within reach. Patient in bed.
[2019-02-07] MEDS: METOPROLOL SUCCINATE 50 MG TAB XL PO SCH (21:45)
[2019-02-08 00:37] VITALS: BP 98/54
[2019-02-08] MEDS: ALBUTEROL/IPRATROPIUM 3 ML NEB NEB SCH ×4 (03:02→14:17)
[2019-02-08 03:36] LABS: BASOPHILS % 0.1 % (0.0-1.0); HEMATOCRIT 37.4 % (34.2-44.1); HEMOGLOBIN 12.1 g/dL (12.0-16.0); LYMPHOCYTES # (AUTO) 1.1 (1.0-3.2); LYMPHOCYTES % 11.7 % (18.0-39.1); MEAN CORPUSCULAR HEMOGLOBIN 27.2 pg (28-32); MEAN CORPUSCULAR HGB CONC 32.4 g/dL (31-35); MONOCYTES # (AUTO) 0.1 (0.2-0.8); MONOCYTES % 1.3 % (4.4-11.3); NEUTROPHILS # (AUTO) 7.7 (2.1-6.9); NEUTROPHILS % 86.1 % (38.7-80.0); PLATELET COUNT 253 x10e3/uL (140-360); RED BLOOD COUNT 4.45 x10e6/uL (3.6-5.1); RED CELL DISTRIBUTION WIDTH 14.9 % (11.7-14.4)
[2019-02-08 04:15] LABS: ANION GAP 13.4 mmol/L (8-16); BLOOD UREA NITROGEN 17 mg/dL (7-26); BUN/CREATININE RATIO 24 (6-25); CALCIUM 8.8 mg/dL (8.4-10.2); CARBON DIOXIDE 22 mmol/L (22-29); CHLORIDE 111 mmol/L (98-107); CREATININE, SERUM 0.71 mg/dL (0.57-1.11); EST GLOMERULAR FILTRATION RATE > 60 ML/MIN (60-); GLUCOSE 160 mg/dL (74-118); POTASSIUM 4.4 mmol/L (3.5-5.1); SODIUM 142 mmol/L (136-145)
[2019-02-08] MEDS ORDERED: ZITHROMAX500 MG PO ×2 (05:17→05:23)
[2019-02-08] MEDS ORDERED: PREDNISONE20 MG PO (05:17)
[2019-02-08] MEDS ORDERED: MUCINEX DM ER1 EACH PO (05:17)
[2019-02-08] MEDS ORDERED: CEFDINIR300 MG PO (05:17)
[2019-02-08] MEDS ORDERED: TESSALON PERLE100 MG PO (05:29)
[2019-02-08] MEDS: GUAIFENESIN 600MG/DEXTROMETHORPHAN 30MG TABSR PO SCH ×2 (06:17→11:41)
[2019-02-08 06:26] VITALS: BP 100/57
--- NOTE | 2019-02-08 07:22 | NUR ---
GAVE REPORT TO ONCOMING NURSE. CALL LIGHT WITHIN REACH. PATIENT IN BED.
[2019-02-08] MEDS: LOSARTAN POTASSIUM 25 MG TAB PO SCH (07:30)
[2019-02-08 07:51] VITALS: BP 106/71
[2019-02-08 08:05] VITALS: BP 106/71
[2019-02-08] MEDS: CEFTRIAXONE SOD 1 GM/NS 50 ML 50 ML IV SCH (09:07)
[2019-02-08] MEDS: ASPIRIN 81 MG CHEW TAB PO SCH (09:08)
[2019-02-08] MEDS: METHYLPREDNISOLONE SOD SUCC 40 MG/ML VIAL 1ML IV SCH (09:08)
[2019-02-08 11:30] VITALS: BP 125/75
[2019-02-08] MEDS: SPIRONOLACTONE 25 MG TAB PO SCH (11:41)
--- NOTE | 2019-02-08 20:14 | Discharge Summary ---
ADMISSION DIAGNOSES: Pneumonia, community-acquired with sepsis, present on admission with failed outpatient therapy with Levaquin, asthma exacerbation, hypertension. DISCHARGE DIAGNOSES: Pneumonia, community-acquired with sepsis, present on admission with failed outpatient therapy with Levaquin, asthma exacerbation, hypertension. HISTORY: Hypertension and asthma. SURGICAL HISTORY: Hysterectomy, appendectomy. FAMILY HISTORY: Noncontributory. SOCIAL HISTORY: Noncontributory. HOSPITAL COURSE: A 58-year-old female sent from PCPs office with pneumonia that has not responded to Levaquin x5 days. She had a temperature of 102 on the day before admission and on admission date. The patient was started on Zithromax, Rocephin, and Mucinex as well as IV steroids. Chest x-ray was unremarkable, so a CT of the chest was done, which showed scattered ground-glass density in the left upper lobe, worrisome for early pneumonia. After few days of IV antibiotics, the patient is feeling much better and was discharged home with prescriptions for Zithromax, Omnicef, Mucinex, and prednisone taper dose. The patient understands discharge instructions and agrees to plan. Vital signs stable. The patient is afebrile. Dictated by Salina Mckeon NP MD TONY Chase/RUSTAM /[id number]
== END 2019-02-08 15:22 | disposition home or self-care (01) | DRG 871 ==
LOC: MED/SURG2 12:42
PROVIDERS: ADMIT Internal Medicine; ATTEND Internal Medicine
DX: A41.9 Sepsis, unspecified organism (principal); J18.9 Pneumonia, unspecified organism; J45.901 Unspecified asthma with (acute) exacerbation; J45.909 Unspecified asthma, uncomplicated; I10 Essential (primary) hypertension; E66.9 Obesity, unspecified; Z68.33 Body mass index [BMI] 33.0-33.9, adult; D72.829 Elevated white blood cell count, unspecified; T38.0X5A Adverse effect of glucocorticoids and synthetic analogues, initial encounter
CPT/HCPCS: 36415; 71046; 71260; 80048; 83036; 83880; 84439; 84443; 84484; 85025; 94640; J0456; J0696; J2920; J7050; Q9967

== ENCOUNTER 2021-11-16 15:29 | Observation (INO) | payer BC ==
[~2021-11-16] VITALS: Ht 157.5 cm; Wt 86.7 kg
[~2021-11-16 15:29] MED LIST changes: +ALBUTEROL0.63 MG/3 IH; +ASPIR 8181 MG PO; +CEFDINIR300 MG PO; +LOSARTAN POTASS25 MG PO; +METOPROLOL SUCC50 MG PO; +MUCINEX DM ER1 EACH PO; +PREDNISONE20 MG PO; +PROVENTIL HFA6.7 GM; +SPIRONOLACTONE25 MG PO; +SYMBICORT 16010.2 GM; +TESSALON PERLE100 MG PO; +ZITHROMAX500 MG PO
[2021-11-16 16:15] VITALS: BP 135/71
[2021-11-16] MEDS ORDERED: PROMETHAZINE 12.5MG/ NACL 0.9% 12.5 MG/50 ML BAG IV PRN (16:30)
[2021-11-16] MEDS ORDERED: HYDRALAZINE HCL 20 MG/ML VIAL IV PRN (16:30)
[2021-11-16] MEDS ORDERED: LACTATED RINGER'S 1,000 ML INJ SCH (16:30)
[2021-11-16] MEDS ORDERED: ACETAMINOPHEN 325 MG TAB PO PRN (16:30)
[2021-11-16] MEDS ORDERED: ONDANSETRON HCL INJ 2MG/ML 2ML 2 MG/ML VIAL IV PRN (16:30)
[2021-11-16 16:50] LABS: BASOPHILS % 0.4 % (0.0-1.0); EOSINOPHILS % 0.4 % (0.0-6.0); HEMATOCRIT 40.5 % (34.2-44.1); HEMOGLOBIN 12.9 g/dL (12.0-16.0); LYMPHOCYTES # (AUTO) 1.8 (1.0-3.2); LYMPHOCYTES % 21.4 % (18.0-39.1); MEAN CORPUSCULAR HEMOGLOBIN 27.3 pg (28-32); MEAN CORPUSCULAR HGB CONC 31.9 g/dL (31-35); MEAN CORPUSCULAR VOLUME 85.6 fL (81-99); MONOCYTES # (AUTO) 0.4 (0.2-0.8); MONOCYTES % 4.9 % (4.4-11.3); NEUTROPHILS # (AUTO) 6.1 (2.1-6.9); NEUTROPHILS % 72.5 % (38.7-80.0); PLATELET COUNT 218 x10e3/uL (140-360); RED BLOOD COUNT 4.73 x10e6/uL (3.6-5.1); RED CELL DISTRIBUTION WIDTH 14.7 % (11.7-14.4)
[2021-11-16 17:08] LABS: ALBUMIN 3.2 g/dL (3.5-5.0); ALBUMIN/GLOBULIN RATIO 0.9 (0.8-2.0); CALCIUM 8.4 mg/dL (8.4-10.2); CHOL/HDL RATIO 4.7 (3.0-3.6); CREATININE, SERUM 0.64 mg/dL (0.57-1.11); PHOSPHORUS 2.8 MG/DL (2.3-4.7)
[2021-11-16 17:28] LABS: THYROID STIMULATING HORMONE 0.693 uIU/mL (0.350-4.940)
[2021-11-16] MEDS: SODIUM CHLORIDE 0.9% 1000ML 1,000 ML IV SCH (17:30)
[2021-11-16] MEDS: FAMOTIDINE 20 MG/2 ML VIAL IV SCH (17:30)
[2021-11-16] MEDS ORDERED: MECLIZINE HCL 12.5 MG TAB PO PRN (17:30)
[2021-11-16 17:49] VITALS: BP 135/71
[2021-11-16] MEDS ORDERED: ALBUTEROL SULFATE HFA 8GM INHALATION AEROSOL INH PRN (18:00)
[2021-11-16] MEDS ORDERED: BENZONATATE 100 MG CAP PO PRN (18:00)
[2021-11-16] MEDS ORDERED: MECLIZINE HCL 12.5 MG TAB PO ONE (18:00)
[2021-11-16 20:00] VITALS: BP 104/55
[2021-11-16] MEDS: METOPROLOL SUCCINATE 50 MG TAB XL PO SCH (21:00)
[2021-11-16 21:30] VITALS: BP 104/55
[2021-11-16] MEDS: ALBUTEROL SULF 0.083% NEB SOLN 3 ML NEB NEB SCH (22:00)
[2021-11-17] VITALS (8 sets, daily range): BP systolic 115–138; BP diastolic 60–69
[2021-11-17] MEDS: SODIUM CHLORIDE 0.9% 1000ML 1,000 ML IV SCH ×4 (03:57→23:37)
[2021-11-17] MEDS: BUDESONIDE/FORMOTEROL 160/4.5MCG INHALER INH SCH (06:00)
[2021-11-17] MEDS: ALBUTEROL SULF 0.083% NEB SOLN 3 ML NEB NEB SCH ×2 (07:15→19:15)
[2021-11-17 09:40] LABS: COLOR,URINE YELLOW (YELLOW)
[2021-11-17 09:41] LABS: CLARITY,URINE CLEAR (CLEAR); KETONES,URINE NEGATIVE (NEGATIVE); LEUKOCYTE ESTERASE ,URINE NEGATIVE (NEGATIVE); NITRITE,URINE NEGATIVE (NEGATIVE); PROTEIN,URINE DIPSTICK NEGATIVE (NEGATIVE); URINE UROBILINOGEN 0.2 mg/dL (0.2 - 1)
[2021-11-17] MEDS ORDERED: PSEUDOEPHEDRINE HCL 30 MG TAB PO ONE ×2 (09:45→10:30)
[2021-11-17 09:50] LABS: BACTERIA,URINE FEW /HPF; EPITHELIAL CELLS,URINE FEW /LPF; RBC,URINE 0-5 /HPF (0-5)
[2021-11-17] MEDS ORDERED: GUAIFENESIN 600 MG TAB PO ONE (10:30)
[2021-11-17] MEDS: LOSARTAN POTASSIUM 25 MG TAB PO SCH (11:04)
[2021-11-17] MEDS: FAMOTIDINE 20 MG/2 ML VIAL IV SCH ×2 (11:04→17:47)
[2021-11-17] MEDS: ASPIRIN 81 MG CHEW TAB PO SCH (11:04)
[2021-11-17] MEDS: SPIRONOLACTONE 25 MG TAB PO SCH (11:05)
[2021-11-17] MEDS: MECLIZINE HCL 12.5 MG TAB PO PRN ×3 (15:10→23:37)
[2021-11-17] MEDS: METOPROLOL SUCCINATE 50 MG TAB XL PO SCH (21:00)
[2021-11-18] VITALS: BP 131/69
[2021-11-18 04:00] VITALS: BP 109/54
[2021-11-18] MEDS: MECLIZINE HCL 12.5 MG TAB PO PRN ×4 (04:10→17:10)
[2021-11-18 06:00] LABS: BASOPHILS % 0.6 % (0.0-1.0); EOSINOPHILS # (AUTO) 0.2 (0.0-0.4); EOSINOPHILS % 2.6 % (0.0-6.0); HEMATOCRIT 38.7 % (34.2-44.1); HEMOGLOBIN 12.1 g/dL (12.0-16.0); LYMPHOCYTES # (AUTO) 2.2 (1.0-3.2); LYMPHOCYTES % 33.1 % (18.0-39.1); MEAN CORPUSCULAR HEMOGLOBIN 27.3 pg (28-32); MEAN CORPUSCULAR HGB CONC 31.3 g/dL (31-35); MEAN CORPUSCULAR VOLUME 87.4 fL (81-99); MONOCYTES # (AUTO) 0.5 (0.2-0.8); MONOCYTES % 7.6 % (4.4-11.3); NEUTROPHILS # (AUTO) 3.7 (2.1-6.9); NEUTROPHILS % 55.9 % (38.7-80.0); PLATELET COUNT 199 x10e3/uL (140-360); RED BLOOD COUNT 4.43 x10e6/uL (3.6-5.1)
[2021-11-18 06:19] LABS: CALCIUM 7.9 mg/dL (8.4-10.2); CREATININE, SERUM 0.71 mg/dL (0.57-1.11); PHOSPHORUS 2.3 MG/DL (2.3-4.7)
[2021-11-18] MEDS: ALBUTEROL SULF 0.083% NEB SOLN 3 ML NEB NEB SCH (07:01)
[2021-11-18] MEDS: BUDESONIDE/FORMOTEROL 160/4.5MCG INHALER INH SCH (07:01)
[2021-11-18 07:49] VITALS: BP 122/68
[2021-11-18 08:20] VITALS: BP 122/68
[2021-11-18] MEDS: ASPIRIN 81 MG CHEW TAB PO SCH (08:49)
[2021-11-18] MEDS: LOSARTAN POTASSIUM 25 MG TAB PO SCH (08:49)
[2021-11-18] MEDS: SODIUM CHLORIDE 0.9% 1000ML 1,000 ML IV SCH (08:49)
[2021-11-18] MEDS: FAMOTIDINE 20 MG/2 ML VIAL IV SCH ×2 (08:49→17:10)
[2021-11-18] MEDS: SPIRONOLACTONE 25 MG TAB PO SCH (08:50)
[2021-11-18 12:02] VITALS: BP 150/76
[2021-11-18 16:15] VITALS: BP 122/72
[2021-11-18] MEDS ORDERED: PROMETHAZINE12.5 M1 PO (18:45)
[2021-11-18] MEDS ORDERED: Meclizine Hcl PO (18:45)
== END 2021-11-18 19:23 | disposition home or self-care (01) ==
LOC: MED/SURG3 15:57
PROVIDERS: ADMIT Internal Medicine; ATTEND Internal Medicine
DX: M48.02 Spinal stenosis, cervical region (principal); E86.0 Dehydration; Z88.2 Allergy status to sulfonamides; R00.1 Bradycardia, unspecified; I10 Essential (primary) hypertension; J45.30 Mild persistent asthma, uncomplicated; J44.9 Chronic obstructive pulmonary disease, unspecified; E66.9 Obesity, unspecified; Z68.34 Body mass index [BMI] 34.0-34.9, adult; R51.9 Headache, unspecified; R42 Dizziness and giddiness; M77.9 Enthesopathy, unspecified; Z20.822 Contact with and (suspected) exposure to COVID-19; G54.2 Cervical root disorders, not elsewhere classified; R15.9 Full incontinence of feces; W19.XXXA Unspecified fall, initial encounter; Z91.81 History of falling; Y93.89 Activity, other specified; Y92.002 Bathroom of unspecified non-institutional (private) residence as the place of occurrence of the external cause; Z87.01 Personal history of pneumonia (recurrent)
CPT/HCPCS: 36415 ×2; 70551; 71045; 72141; 80048; 80053; 80061; 81001; 83036; 83735 ×2; 84100 ×2; 84443; 85025 ×2; 92526; 92610; 93005; 93880; 94640 ×3; 94664; 94799 ×3; 97116; 97139 ×2; 97162; 97530; G0378 ×3; J2405; J7030 ×3; J8597 ×3; U0002